=== PATIENT | female | born 1970 | race Caucasian/White ===

== ENCOUNTER → 2017-05-19 14:16 | Outpatient (CLI) | payer BC, SELFPAY ==
--- NOTE | 2017-05-19 14:23 | XR_ITS ---
XR hip RT 2-3V w/pelvis HISTORY: ITS.REASON: RT HIP PAIN ORDERING PHYSICIAN: Gino Pickett MD PATIENT AGE: 47 years COMPARISON: 10/10/2008 FINDINGS: There is an old ununited avulsion fracture of the greater trochanter with minimal hypertrophic change along the superior aspect of the greater trochanter and minimal distraction of the fragments x 4 mm. No acute fracture or dislocation is evident. No significant arthritic change. Pelvic phleboliths are noted. IMPRESSION: Old ununited greater trochanter fracture, no acute finding
== END ==
PROVIDERS: PCP Family Medicine; Visit Provider Family Medicine
DX: M25.551 Pain in right hip (principal)
CPT/HCPCS: 73502

== ENCOUNTER → 2017-12-01 14:17 | Outpatient (CLI) | payer BC, SELFPAY ==
[2017-12-01 17:05] LABS: Free T4 (Free Thyroxine) 1.49 ng/dl (0.76-1.46); Thyroid Stimulating Hormone 0.43 uIU/ml (0.358-3.740)
== END ==
PROVIDERS: PCP Family Medicine; Referring Provider Internal Medicine; Visit Provider Internal Medicine
DX: E89.0 Postprocedural hypothyroidism (principal)
CPT/HCPCS: 36415; 84439; 84443

== ENCOUNTER → 2018-04-25 10:15 | Outpatient (CLI) | payer BC, SELFPAY ==
--- NOTE | 2018-04-25 10:19 | MM_ITS ---
MM Dig screening mamm BI w/CAD CAD Screening COMPARISON: Digital mammograms with CAD 06/29/2016 and 06/10/2015 INDICATION: There is a history of breast cancer in patient's maternal grandmother diagnosed after menopause. There has been a previous biopsy left breast for benign disease. TECHNIQUE: Standard CC and MLO images were obtained. R2 CAD reviewed. FINDINGS: There is a markedly and diffusely dense parenchymal pattern bilaterally lessening the sensitivity of mammography. There are scattered benign-appearing microcalcifications in each breast more numerous left than right. There is a biopsy clip left breast. There is no suspicious lesion and no suspicious microcalcifications. IMPRESSION: Markedly dense parenchymal pattern with no suspicious lesion seen BI-RADS Category: 2 Benign Finding(s) RECOMMENDED FOLLOW-UP: 1YR - 1 YEAR FOLLOW-UP (A letter has been sent to the patient regarding results of the study.)
== END ==
PROVIDERS: PCP Family Medicine; Visit Provider Obstetrics & Gynecology
DX: Z12.31 Encounter for screening mammogram for malignant neoplasm of breast (principal)
CPT/HCPCS: 77067

== ENCOUNTER → 2018-05-04 14:03 | Outpatient (CLI) | payer BC, SELFPAY ==
--- NOTE | 2018-05-04 14:09 | CT_ITS ---
CT abdomen pelvis wo con CLINICAL INDICATION: Left upper quadrant pain, periumbilical pain ITS.REASON: ABDOMINAL PAIN ORDERING PHYSICIAN: Gino Pickett MD PATIENT AGE: 48 years COMPARISON: None TECHNIQUE: Axial images obtained with sagittal and coronal reformats. All CT scans at the facility use one or more dose reduction, viz: automated exposure control, ma/kV adjustment per patient size (including targeted exams where dose is matched to indication, i.e. head), or iterative reconstruction technique. PROCEDURE: Oral Contrast: None IV Contrast: None . FINDINGS: Lower thorax: No acute finding Prior cholecystectomy. The liver, spleen, adrenal glands, pancreas, and kidneys have an unremarkable unenhanced CT appearance. There is a moderate amount of retained colonic feces. Suture line is present in the mid pelvic region. No intestinal obstruction or free air. No evidence of appendicitis or diverticulitis. There are multiple unopacified bowel loops present within the abdomen/pelvis which could obscure or mimic pathology. If symptoms persists, consider repeating exam with IV and oral contrast administration. No acute bony findings. Heterotopic bone formation is noted along the superior aspect of the right greater trochanter IMPRESSION: 1. Constipation. 2. No acute abdominal or pelvic findings on this unenhanced exam
== END ==
PROVIDERS: PCP Family Medicine; Visit Provider Family Medicine
DX: R10.9 Unspecified abdominal pain (principal)
CPT/HCPCS: 74176

== ENCOUNTER → 2018-12-26 11:43 | Outpatient (CLI) | payer BC, SELFPAY ==
[2018-12-26 14:13] LABS: Alanine Aminotransferase 11 U/L (12-78); Albumin Level 4.1 gm/dL (3.4-5.0); Albumin/Globulin Ratio 1.2 (1.1-1.8); Alkaline Phosphatase 51 U/L (46-116); Anion Gap 12.4 mEq/L (5-15); Aspartate Amino Transferase 8 U/L (15-37); Bilirubin,Total 0.3 mg/dL (0.2-1.0); Blood Urea Nitrogen 10 mg/dL (7-18); Calcium 8.9 mg/dL (8.5-10.1); Carbon Dioxide 29 mmol/L (21.0-32.0); Chloride 103 mmol/L (98-107); Chol/HDL Ratio 2.5 (1-3.5); Cholesterol 183 mg/dL (140-200); Creatinine,Serum 0.55 mg/dL (0.55-1.02); Estimated Glomerular Filt Rate 117 ml/min (>60); GFR (African American) 142 ML/MIN (>60); Globulin 3.5 gm/dl (1.3-3.2); Glucose 80 mg/dL (74-106); HDL Cholesterol 72 mg/dL (29-89); LDL Cholesterol 92 mg/dL (0-130); Potassium 4.4 mmoL/L (3.5-5.1); Sodium 140 mmol/L (136-145); T4 (Thyroxine) 12.8 ug/dl (4.7-13.3); Thyroid Stimulating Hormone 1.94 uIU/ml (0.358-3.740); Total Protein,Serum 7.6 gm/dL (6.4-8.2); Triglycerides 96 mg/dL (30-200); VLDL Cholesterol 19 mg/dL (0-40)
== END ==
PROVIDERS: Visit Provider Family Medicine
DX: G54.6 Phantom limb syndrome with pain (principal); E03.9 Hypothyroidism, unspecified
CPT/HCPCS: 36415; 80053; 80061; 84436; 84443

== ENCOUNTER 2019-08-18 13:27 | Emergency (ER) | payer BC, SELFPAY ==
[2019-08-18 13:29] VITALS: BP 101/63; PULSE 88; RESP 16; TEMP 37.4; O2SAT 99; BMI 21.9
--- NOTE | 2019-08-18 14:01 | XR_ITS ---
PROCEDURE: XR TIBIA FIBULA RT 2V CLINICAL INDICATION: injury Posttraumatic pain with laceration COMPARISON: No exams were available for comparison FINDINGS: No fracture, dislocation, lytic change, or blastic change evident. No significant degenerative change. There are faint small opacities in the mid aspect of the pretibial region consistent with small foreign bodies. IMPRESSION: Small foreign bodies in the pretibial region at the mid tibial level otherwise negative Dictated by: Bony Hendricks MD 08/18/2019 15:23 Electronically signed by Bony Hendricks MD in [place] 08/18/2019 15:23
--- NOTE | 2019-08-18 15:06 | HMH.EDUTC ---
[facility] Clinical Impression: Leg laceration Qualifiers: Encounter type: initial encounter Laterality: right Qualified Code(s): S81.811A - Laceration without foreign body, right lower leg, initial encounter Disposition: Home, Self-Care Condition on Discharge: Good Instructions: How to Care for a Laceration Prior to Repair, Laceration Repair, DI for Laceration Repair -- Simple Additional Instructions: You have required stitches today. Please read the following instructions so you know how to care for them: 1. Keep wound area dry for the first 24 hours. 2 May clean gently with mild soap and water, after 48 hours to prevent crusting over suture knots. 3. You may shower if your provider gives permission but do not take a bath until the skin is healed.. 4. Never leave a wet dressing or Band-Aid on your stitches as this allows bacteria to reach the area and may cause infection. Band-aids can cause the wound to sweat and not recommended to wear for long periods of time Watch for signs of infection: Increasing redness, tenderness or warmth around the suture site Unusual swelling around the site Appearance of pus around each suture or any red streaks Fever If you develop any of the above signs or symptoms of infection, Follow up with Family Physician immediately 5. Suture removal in __7-10__days 6. Return to [facility] or follow up with family doctor for removal. This can be done by any medical provider during regular hours on Monday through Monday, by appointment. Prescriptions: Amoxicillin/Potassium Clav [Augmentin 500mg tab] 1 tab PO BID 7 Days #14 tab Transmission Status: Received by [id number] Referrals: Gino Pickett MD [Primary Care Provider] - As needed Time of Disposition: 15:08 Medical Decision Making - Gaetano Inquiry Pt receiving controlled substance: No Gaetano was queried for this patient: No Vital Signs: 08/18/19 13:29 08/18/19 15:14 Temperature 99.4 F 99.4 F Temperature Source Oral Oral Pulse Rate 88 Pulse Rate [Radial] 88 Respiratory Rate 16 16 Blood Pressure 101/63 L Blood Pressure [Right Arm] 101/63 L Blood Pressure Mean [Right Arm] 75 Blood Pressure Source Automatic Cuff Blood Pressure Source [Right Arm] Automatic Cuff Blood Pressure Position Sitting Blood Pressure Position [Right Arm] Sitting 02 Sat by Pulse Oximetry 99 Oxygen Delivery Method Room Air Room Air - Radiology Data #1 Image(s): Tib/Fib Image Reviewed: Yes I reviewed the patient's radiology image Preliminary Findings: No Fracture Seen small debris like particles noted in area of laceration Medical Decision Narrative: wound area was flushed well with saline and several small pieces of debris was removed from wound area. Last tetanus 2 yrs ago [facility] [place]PI - General Stated complaint: AO 08/17 @ 1120 right leg injury, laceration Time Seen by Provider: 08/18/19 14:15 Mode of Arrival: Ambulatory Source of Information: Patient Limitations: No Limitations Description of Symptoms (Recalled from Triage Doc. by RN): rock flew out of [employer] and hit her right merlos HEENT Symptoms (Recalled from RN notes): No Resp Symptoms (Recalled from RN notes): No Skin Symptoms (Recalled from RN notes): Yes MS Symptoms (Recalled from RN notes): No Functional Status (Recalled from RN notes): wnl - History of Present Illness Provider Complaint: Patient states that she was pushing [employer] earlier at home when she accidently ran over a rock and it flew from the mower and hit her in her right merlos area causing laceration and bruising State that she immediately applied pressure and tried to clean it and put something over it and it has continued to have bleeding on and off and her husban brought her in to get it checked - Related Data Home Medications Medication Instructions Recorded Confirmed levothyroxine 150 mcg tablet 150 mcg PO DAILY tab 06/12/17 10/08/18 trazodone 50 mg tablet 50 mg PO QHS PRN
[2019-08-18 15:14] VITALS: BP 101/63; PULSE 88; RESP 16; TEMP 37.4; O2SAT 99
== END 2019-08-18 15:15 | disposition home or self-care (01) ==
PROVIDERS: Emergency Provider Nurse Practitioner; PCP Family Medicine
DX: S81.811A Laceration without foreign body, right lower leg, initial encounter (principal); W22.8XXA Striking against or struck by other objects, initial encounter; Y92.017 Garden or yard in single-family (private) house as the place of occurrence of the external cause; F33.1 Major depressive disorder, recurrent, moderate; E03.9 Hypothyroidism, unspecified
CPT/HCPCS: 12001; 73590; 99202

== ENCOUNTER 2020-02-02 16:11 | Emergency (ER) | payer BC, SELFPAY ==
[2020-02-02 16:11] VITALS: BP 149/84; PULSE 97; RESP 14; TEMP 37; O2SAT 97; BMI 21.9
--- NOTE | 2020-02-02 16:13 | ECG_ITS ---
APPROVED REPORT Exam: Resting ECG HR:110 bpm ECG Measurements Heart Rate 110 AXES NE 150 P 28 QRSd 78 QRS 43 QT 338 T -20 QTc 457 Conclusion Sinus tachycardia Low voltage QRS Cannot rule out Anterior infarct, age undetermined Abnormal ECG Electronically signed by : Rashaun Shell, 02/03/2020 21:08:15
--- NOTE | 2020-02-02 16:15 | HMH.EDGENADL ---
ED Disposition Clinical Impression: Atypical chest pain Disposition: Home, Self-Care Condition on Discharge: Good Instructions: DI for Atypical Chest Pain Additional Instructions: Additional instructions for CHEST PAIN: See your physician as soon as possible for further evaluation. Return immediately if worsening chest pain, vomiting, shortness of breath, fever, coughing of blood. Referrals: Gino Pickett MD [Primary Care Provider] - - Critical Care Critical Care Time: No Attestation: On , the high probability of a clinically significant, sudden or life threatening deterioration of the following system(s) required my full and direct attention, intervention and personal management. The time I documented below is in addition to time spent performing reported procedures but includes the following listed in this critical care notation. Medical Decision Making - Gaetano Inquiry Pt receiving controlled substance: No Vital Signs: 02/02/20 16:11 02/02/20 17:04 02/02/20 17:37 Temperature 98.6 F Temperature Source Oral Pulse Rate [Left Radial] 97 H 74 71 Respiratory Rate 14 Blood Pressure [Right Arm] 149/84 H 111/82 122/77 Blood Pressure Mean [Right Arm] 105 91 92 Blood Pressure Source [Right Arm] Automatic Cuff Automatic Cuff Automatic Cuff Blood Pressure Position [Right Arm] Sitting Sitting Sitting 02 Sat by Pulse Oximetry 97 73 L 97 Oxygen Delivery Method Room Air Room Air Room Air 02/02/20 18:15 Temperature Temperature Source Pulse Rate [Left Radial] 74 Respiratory Rate Blood Pressure [Right Arm] 113/82 Blood Pressure Mean [Right Arm] 92 Blood Pressure Source [Right Arm] Automatic Cuff Blood Pressure Position [Right Arm] Sitting 02 Sat by Pulse Oximetry 97 Oxygen Delivery Method Room Air - Lab Data Lab Results 02/02/20 16:10: WBC 7.1, RBC 4.20, Hgb 13.6, Hct 41.6, MCV 99.2 H, MCH 32.4 H, MCHC 32.7, RDW 13.2, Plt Count 406, MPV 7.4, Neut % (Auto) 50.4, Lymph % (Auto) 40.7, Stephens % (Auto) 4.2, Eos % (Auto) 3.7, Baso % (Auto) 0.9, Neut # (Auto) 3.6, Lymph # (Auto) 2.9, Stephens # (Auto) 0.3, Eos # (Auto) 0.3, Baso # (Auto) 0.1 02/02/20 16:10: Sodium 139, Potassium 4.0, Chloride 106, Carbon Dioxide 24, Anion Gap 13.0, BUN 11, Creatinine 0.60, Estimated Creat Clear 111, Estimated GFR 105, Est GFR ( Amer) 128, Glucose 123 H, Calcium 9.2, Troponin I < 0.01 02/02/20 16:10: D-Dimer 0.54 Result diagrams: 02/02/20 16:10 02/02/20 16:10 Orders (Tests/Meds): ORDERS Category Date Time Status Troponin I Q3H Lab 02/02/20 19:21 Received Troponin I Q3H Lab 02/02/20 22:15 Ordered - Radiology Data #1 Image(s): Chest Image Reviewed: Yes I reviewed the patient's radiology image, Yes I have reviewed radiologist's interpretation Preliminary Findings: Normal/NAD PROCEDURE: XR CHEST 2V CLINICAL HISTORY: cp COMPARISON: No exams were available for comparison FINDINGS: The cardiomediastinal silhouette and pulmonary vascularity are within normal limits. The lungs are clear without infiltrates, suspicious nodules, or pleural effusions. There are small calcified hilar nodes bilaterally. Monitor lines overlying the chest. No acute bony abnormalities. IMPRESSION: No acute findings. Dictated by: Dr. Joesph Galvez MD 02/02/2020 18:29 Dr. Joesph Galvez MD in [place] 02/02/2020 18:29 - ECG Data Tracing #1 EKG interpreted by Chico Babcock MD: Rhythm: sinus tachycardia Rate: 110 Gordo: normal Ectopy: none Conduction: normal ST Segment Changes: Nonspecific T Wave Changes: Nonspecific Q Waves: none Poor R wave progression No prior EKGs available for comparison. - BRIAN Score for Non-Stemi Age of Patient: 50-59 years old Heart Rate: 90-109 bpm Systolic Blood Pressure: 140-159 mmHg Serum Creatinine: 0.40-0.79 mg/dl CHF Killip Class: I-No CHF Other Risk Factors: None Non-Stemi Risk Score: 84 Medical Decision Narrative: Heart Pathway Score is:
[2020-02-02 16:25] LABS: Basophils # 0.1 K/mm3 (0-0.2); Basophils % 0.9 % (0.1-2.0); Eosinophils # 0.3 K/mm3 (0.0-0.4); Eosinophils % 3.7 % (0.1-12.0); Hematocrit 41.6 % (37.0-47.0); Hemoglobin 13.6 g/dL (12.2-16.2); Lymphocytes # 2.9 K/mm3 (0.7-4.5); Lymphocytes % 40.7 % (10-50); Mean Corpuscular HGB Conc 32.7 g/dL (31.8-35.4); Mean Corpuscular Hemoglobin 32.4 pg (27.0-31.2); Mean Corpuscular Volume 99.2 fl (81-99); Mean Platelet Volume 7.4 fl (7.4-10.4); Monocytes # 0.3 K/mm3 (0.1-1.0); Monocytes % 4.2 % (1.7-9.3); Neutrophils # 3.6 K/mm3 (1.8-7.8); Neutrophils % 50.4 % (37.0-80.0); Platelet Count 406 K/mm3 (142-424); Red Cell Distribution Width 13.2 % (11.5-17.5); White Blood Count 7.1 K/mm3 (4.8-10.8)
[2020-02-02 16:26] LABS: Chloride 106 mmol/L (98-107); Sodium 139 mmol/L (136-145)
[2020-02-02 16:29] LABS: Blood Urea Nitrogen 11 mg/dl (7-17); Carbon Dioxide 24 mmol/L (22.0-30.0); Creatinine Clearance Estimated 111 mL/min (50-200); Estimated Glomerular Filt Rate 105 ml/min (>60); GFR (African American) 128 ML/MIN (>60)
[2020-02-02 16:30] LABS: Calcium 9.2 mg/dl (8.4-10.2); Glucose 123 mg/dl (74-100)
--- NOTE | 2020-02-02 16:32 | PC.NURSE ---
Pt returned from rad.
[2020-02-02 16:43] LABS: Troponin I < 0.01 ng/ml (0.00-0.034)
[2020-02-02 17:04] VITALS: BP 111/82; PULSE 74; O2SAT 73
[2020-02-02 17:15] LABS: D-Dimer 0.54 ug/mL (0.15-8.0)
[2020-02-02 17:37] VITALS: BP 122/77; PULSE 71; O2SAT 97
[2020-02-02 18:15] VITALS: BP 113/82; PULSE 74; O2SAT 97
[2020-02-02 19:58] LABS: Troponin I < 0.01 ng/ml (0.00-0.034)
[2020-02-02 20:18] VITALS: BP 113/81; PULSE 72; RESP 14; TEMP 37; O2SAT 98
== END 2020-02-02 20:20 | disposition home or self-care (01) ==
PROVIDERS: Emergency Provider Emergency Medicine; PCP Family Medicine
DX: R07.89 Other chest pain (principal); E03.9 Hypothyroidism, unspecified; F33.1 Major depressive disorder, recurrent, moderate; Z88.2 Allergy status to sulfonamides; Z79.899 Other long term (current) drug therapy
CPT/HCPCS: 36415; 71046; 80048; 84484; 85025; 85378; 93005; 99283

== ENCOUNTER → 2020-02-10 06:53 | Outpatient (CLI) | payer BC, SELFPAY ==
--- NOTE | 2020-02-10 | CA_ITS ---
APPROVED REPORT Exam: Pharmacologic Technologist: Shena Cai, Ht: 5 ft 7 in Wt: 140 lbs BSA: 1.74 m2 HR: 73 bpm BP: 125/81 mmHg Rhythm: Sinus Medical History Medications: Trazadone,,,,, Gabapentin,,,,, Lexapro,,,,, Synthroid,,,,, control,,,,, Nortriptylin,,,,, Stress Test Details Test: LEXISCAN HR Resting HR: 70 bpm Max Heart Rate (APMHR): 168 bpm Max HR Achieved: 105 bpm Target HR (85% APMHR): 142 bpm % of APMHR: 62 Recovery HR: 81 bpm BP Resting BP: 125/81 mmHg Max BP: 126/74 mmHg Recovery BP: 126.0/74.0 mmHg ECG Resting ECG: Sinus Clinical Exercise duration: 04:00 min Highest Stage Achieved: Stress ECG Conclusion Lexiscan portion completed. Pt c/o shortness of breath during peak infusion. Symptoms: No chest pain, (+) SOB during peak infusion, resolved in recovery. Arrhythmias/Ectopy: No ectopy noted. ST-T changes: Less than 1.5mm ST depression. Images to follow Electronically signed by : Amish Paulson, 02/11/2020 08:57:23
--- NOTE | 2020-02-10 06:59 | NM_ITS ---
APPROVED REPORT Exam: Nuclear Stress Test Indication: Chest pain, Family history Patient Location: Outpatient Stress Tech: Tamara Melissa NM Tech:Shantal Hope ARRT, RT (R)(N) Ht: 5 ft 7 in Wt: 140 lbs Bra Size: 34C HR: 73 bpm BP: 125/81 mmHg BSA: 1.74 m2 BMI: 21.9 History: Chest pain, Family history Procedure: Patient received a 0.4 mg of intravenous Lexiscan, resting heart rate 73 bpm, resting blood pressure 125/81 mmHg, with Lexiscan maximum heart rate achived was 99 bpm which is 85 % of the maximum predicted heart rate and blood pressure was 109/63 mmHg. With Lexiscan, patient denied any complaint of chest pain. Cardiac Stress and Resting SPECT Images: Cardiac Stress and Resting SPECT images were obtained using technetium 99m Myoview 32.6 mCi stress and 10.82 mCi at rest. Ejection fraction is lower normal at 55% with no obvious wall motion abnormalities. There is a small area of decreased attenuation within the anterior wall on both the stress and delayed images and may be due to breast attenuation artifact. No reversible defects are evident. Conclusion: Ejection fraction is lower normal at 55% with no obvious wall motion abnormalities. There is a small area of decreased attenuation within the anterior wall on both the stress and delayed images and may be due to breast attenuation artifact. No reversible defects are evident. Unremarkable exam. No ischemic changes Electronically signed by : Bony Hendricks MD 02/12/2020 17:04:10
--- NOTE | 2020-02-10 08:49 | HMH.ITSHM ---
Current Home Medications as stated by this patient Beverly Hernandez or training representative. []SYNTHROID CONTROL TRAZADONE GABAPENTIN LORATRIPTOL
== END ==
PROVIDERS: PCP Family Medicine; Visit Provider Family Medicine
DX: R07.2 Precordial pain (principal)
CPT/HCPCS: 78452; 93017; A9502; J2785

== ENCOUNTER 2020-04-14 00:55 | Inpatient (IN) | payer BC, SELFPAY ==
[2020-04-14] VITALS (14 sets, daily range): BP systolic 90–140; BP diastolic 51–86; PULSE 74–100; RESP 15–18; TEMP 36.4–37.1; O2SAT 96–100; BMI 21.9; BMI 21.1
--- NOTE | 2020-04-14 01:18 | XR_ITS ---
PROCEDURE: XR HIP LT 2-3V W/PELVIS CLINICAL INDICATION: fall with hip pain Posttraumatic pain COMPARISON: CR HIPCMRT XR hip RT 2-3V w/pelvis from 05/19/2017 FINDINGS: There is a transcervical left femoral neck fracture with mild impaction the fracture fragments. There is approximately 2 cm foreshortening and mild lateral displacement of the distal fracture fragment. There is an old right greater trochanter fracture. There is an old distal femur fracture with remodeling of the bone with a lateral bone plate at the mid and distal femur transfixed by multiple cortical screws. IMPRESSION: 1. Acute fracture of the transcervical region of the left femur with foreshortening and mild lateral displacement of the distal fracture fragment. 2. Prior ORIF old distal femur fracture Dictated by: Bony Hendricks MD 04/14/2020 06:32 Bony Hendricks MD in [place] 04/14/2020 06:32
--- NOTE | 2020-04-14 01:18 | XR_ITS ---
PROCEDURE: XR KNEE LT 3V CLINICAL INDICATION: fall with knee pain COMPARISON: CR KNEE3L KNEE-3 VIEWS-LT from 01/17/2013 CR XR HIP LT 2-3V W/PELVIS from 04/14/2020 FINDINGS: There is an old fracture of the distal femur and proximal tibia with a lateral femur bone plate present. 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 Osteoarthritic changes are present at the knee. Soft tissue calcification noted at the distal thigh. IMPRESSION: Old distal femur and proximal tibial fracture with lateral bone plate of the femur. No definite acute fracture apparent Dictated by: Bony Hendricks MD 04/14/2020 06:28 Bony Hendricks MD in [place] 04/14/2020 06:28
--- NOTE | 2020-04-14 01:26 | PC.NURSE ---
pt to RAD
--- NOTE | 2020-04-14 01:27 | HMH.EDFALL ---
ED Disposition Clinical Impression: Hip fracture Qualifiers: Encounter type: initial encounter Fracture type: closed Laterality: left Qualified Code(s): S72.002A - Fracture of unspecified part of neck of left femur, initial encounter for closed fracture Osteopenia Qualifiers: Osteopenia location: femoral neck Laterality: left Qualified Code(s): M85.852 - Other specified disorders of bone density and structure, left thigh Disposition: Admitted As Inpatient Condition on Discharge: Good - Critical Care Critical Care Time: No Attestation: On 04/14/20, the high probability of a clinically significant, sudden or life threatening deterioration of the following system(s) required my full and direct attention, intervention and personal management. The time I documented below is in addition to time spent performing reported procedures but includes the following listed in this critical care notation. Medical Decision Making - Medical Records Medical records reviewed: Yes: I reviewed the patient's medical records. - Gaetano Inquiry Pt receiving controlled substance: No Vital Signs: 04/14/20 00:57 04/14/20 02:31 04/14/20 03:00 Temperature 98.7 F Temperature Source Oral Pulse Rate [Left Radial] 74 82 87 Respiratory Rate 16 16 16 Blood Pressure [Right Arm] 90/53 L 96/51 L 98/56 L Blood Pressure Mean [Right Arm] 65 66 70 Blood Pressure Source [Right Arm] Automatic Cuff Automatic Cuff Automatic Cuff Blood Pressure Position [Right Arm] Sitting Sitting Sitting 02 Sat by Pulse Oximetry 100 99 100 Oxygen Delivery Method Room Air Room Air Room Air 04/14/20 03:30 Temperature Temperature Source Pulse Rate [Left Radial] 83 Respiratory Rate 15 Blood Pressure [Right Arm] 107/72 L Blood Pressure Mean [Right Arm] 83 Blood Pressure Source [Right Arm] Automatic Cuff Blood Pressure Position [Right Arm] Sitting 02 Sat by Pulse Oximetry 97 Oxygen Delivery Method Room Air - Lab Data Lab results reviewed: Yes: I reviewed the patient's lab results. Result diagrams: 04/14/20 02:32 04/14/20 02:32 Orders (Tests/Meds): ED MEDICATIONS Generic Name Dose Route Start Last Admin Trade Name Freq PRN Reason Stop Dose Admin Sodium Chloride 1,000 mls @ 999 mls/hr 04/14/20 02:45 04/14/20 02:45 Sod Chlor 0.9% 1000ml Bag IV 04/14/20 03:45 999 mls/hr .Q1H1M MI Administration Discontinued Medications Generic Name Dose Route Start Last Admin Trade Name Freq PRN Reason Stop Dose Admin Morphine Sulfate 4 mg 04/14/20 02:41 04/14/20 02:45 Morphine 4mg/Ml Syringe IV 04/14/20 02:42 4 mg ONCE ONE Administration Ondansetron HCl 4 mg 04/14/20 02:41 04/14/20 02:45 Ondansetron 4mg/2ml Vial IV 04/14/20 02:42 4 mg ONCE ONE Administration ORDERS Category Date Time Status CT hip LT wo con Stat Cat Scan 04/14/20 01:40 Taken Knee XR left 3 views [XR knee LT 3V] Stat Exams 04/14/20 01:18 Taken XR hip LT 2-3V w/pelvis Stat Exams 04/14/20 01:18 Taken Troponin I Q3H Lab 04/14/20 05:00 Ordered Troponin I Q3H Lab 04/14/20 08:00 Ordered - Radiology Data #1 Image(s): Hip, Knee Image Reviewed: Yes I reviewed the patient's radiology image w/the ED provider Preliminary Findings: Abnormal (hip fx and chronic changes lt lower leg ) - CT Data CT Scan: Other (lt hip) Time Received: 03:[address] Reviewed: Yes: I have viewed the radiologist's interpretation Preliminary Findings: Abnormal (hip fx) - Physician Consults Physician Consulted: david Reason -: Admission Fall HPI - General Chief Complaint: Fall Stated Complaint: AO 04/14/20 00:25 injury left leg Time Seen by Provider: 04/14/20 01:05 Mode of Arrival: Ambulatory Source of Information: Patient, Spouse, Medical Record Limitations: No Limitations Description of Symptoms (Recalled from ER Triage Doc. by RN): pt stated she tripped and fell on her bottom. pt complains of left hip pain and left knee pain. pt deneis any abd. or chest pain
--- NOTE | 2020-04-14 01:40 | CT_ITS ---
PROCEDURE: CT HIP LT WO CON CLINICAL HISTORY: fall left hip pain COMPARISON: CT ABDPELWO CT abdomen pelvis wo con from 05/04/2018 TECHNIQUE: Axial images obtained with sagittal and coronal reformats. All CT scans at the facility use one or more dose reduction, viz: automated exposure control, ma/kV adjustment per patient size (including targeted exams where dose is matched to indication, i.e. head), or iterative reconstruction technique. FINDINGS: Acute fracture involves left femoral neck transcervical region. The distal fracture fragment is displaced proximally with foreshortening of approximately 1.3 cm and with mild lateral displacement of the distal fracture fragment. No evidence of dislocation. There is a lateral bone plate within the mid femur. Incidental note made colonic diverticulosis and a few small nodes in the left inguinal region. IMPRESSION: Acute fracture of the transcervical portion of the left femoral neck with foreshortening and mild lateral displacement of the distal fracture fragment Dictated by: Bony Hendricks MD 04/14/2020 07:02 Bony Hendricks MD in [place] 04/14/2020 07:02
--- NOTE | 2020-04-14 01:47 | PC.NURSE ---
spoke with Dr. Culver for admission
--- NOTE | 2020-04-14 02:26 | PC.NURSE ---
pt back from RAD
[2020-04-14 02:56] LABS: Chloride 101 mmol/L (98-107); Potassium 4.2 mmoL/L (3.5-5.1); Sodium 135 mmol/L (136-145)
[2020-04-14 02:57] LABS: Basophils % 0.3 % (0.1-2.0); Eosinophils # 0.2 K/mm3 (0.0-0.4); Eosinophils % 1.6 % (0.1-12.0); Hematocrit 40.8 % (37.0-47.0); Hemoglobin 13.5 g/dL (12.2-16.2); Lymphocytes # 1.9 K/mm3 (0.7-4.5); Lymphocytes % 14.2 % (10-50); Mean Corpuscular HGB Conc 33.1 g/dL (31.8-35.4); Mean Corpuscular Hemoglobin 32.7 pg (27.0-31.2); Mean Corpuscular Volume 98.8 fl (81-99); Mean Platelet Volume 7.2 fl (7.4-10.4); Monocytes # 0.5 K/mm3 (0.1-1.0); Monocytes % 3.7 % (1.7-9.3); Neutrophils # 10.7 K/mm3 (1.8-7.8); Neutrophils % 80.2 % (37.0-80.0); Platelet Count 423 K/mm3 (142-424); Red Blood Count 4.13 M/mm3 (4.20-5.40); Red Cell Distribution Width 13.8 % (11.5-17.5); White Blood Count 13.3 K/mm3 (4.8-10.8)
[2020-04-14 02:58] LABS: Alanine Aminotransferase 17 U/L (12-78); Aspartate Amino Transferase 29 U/L (14-36); Blood Urea Nitrogen 17 mg/dl (7-17); Creatinine Clearance Estimated 110 mL/min (50-200); Estimated Glomerular Filt Rate 105 ml/min (>60); GFR (African American) 127 ML/MIN (>60)
[2020-04-14 02:59] LABS: Albumin Level 4.5 g/dl (3.5-5.0); Albumin/Globulin Ratio 1.4 (1.1-1.8); Alkaline Phosphatase 60 U/L (38-126); Anion Gap 11.2 mEq/L (5-15); Bilirubin,Total 0.4 mg/dl (0.2-1.3); Calcium 9.3 mg/dl (8.4-10.2); Carbon Dioxide 27 mmol/L (22.0-30.0); Globulin 3.3 g/dL (1.3-3.2); Glucose 124 mg/dl (74-100); Total Protein,Serum 7.8 g/dl (6.3-8.2)
[2020-04-14 03:18] LABS: Troponin I < 0.01 ng/ml (0.00-0.034)
[2020-04-14 03:29] LABS: Coronavirus 19 IgG Antibody Positive (Negative); Coronavirus 19 IgM Antibody Negative (Negative)
[2020-04-14 03:32] LABS: Microscopic, Urine URINE MICROSCOPIC (MICROSCOPIC)
[2020-04-14 03:33] LABS: Appearance,Urine CLEAR (Clear); Bilirubin,Urine Negative (Negative); Blood, Urine 2+ (Negative); Color,Urine YELLOW (Yellow); Glucose,Urine (UA) Negative (Negative); Ketones,Urine TRACE (Negative); Leukocyte Esterase,Urine Negative (Negative); Nitrate,Urine Negative (Negative); Protein,Urine 1+ (Negative); Specific Gravity, Urine >= 1.030 (1.005-1.030); Urobilinogen,Urine 0.2 EU/dl (0.2)
[2020-04-14 03:55] LABS: Bacteria,Urine 1+ /lpf; Mucus,Urine 1+ /lpf
--- NOTE | 2020-04-14 04:26 | PC.NURSE ---
PT ARRIVED VIA STRETCHER FROM ED W/STAFF AT [id number]
--- NOTE | 2020-04-14 07:34 | HMH.PHAVTE ---
[facility] VTE Monitoring - Patient Demographics Admission date: 04/14/20 Report Date: 04/14/20 Time: 07:34 Allergies/Adverse Reactions: Patient Allergies clindamycin Allergy (Mild, Verified 04/14/20 03:37) rash SULFA (sulfonamide) Allergy (Unknown, Uncoded 08/29/19 11:11) Height: 1.7 m Weight: 61.235 kg Patient Problems: Current Active Problems Hip fracture (Acute) Osteopenia (Acute) - VTE Risk Labs: VTE Related Lab Results Hgb 13.5 g/dL (12.2-16.2) 04/14/20 02:32 Hct 40.8 % (37.0-47.0) 04/14/20 02:32 Plt Count 423 K/mm3 (142-424) 04/14/20 02:32 BUN 17 mg/dl (7-17) 04/14/20 02:32 Creatinine 0.60 mg/dl (0.52-1.04) 04/14/20 02:32 Estimated Creat Clear 110 mL/min (50-200) 04/14/20 02:32 Was VTE Risk Assessment Performed: Yes VTE Score: 3 VTE Risk Level: Low Risk Clinical Trial Participant: No - Prophylaxis VTE Prophylaxis Ordered?: Yes Types of VTE Prophylaxis: TEDS Knee High
--- NOTE | 2020-04-14 07:58 | HMH.PHAINT ---
home medication list confirmed using list from pharmacy and pt interview
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
[2020-04-14 17:18] LABS: Activated Partial Thrombo Time 28.2 seconds (23.6-34.0); INR 0.92 (0.9-1.1); Prothrombin Time 10.3 seconds (9.4-11.8)
--- NOTE | 2020-04-14 23:03 | PC.NURSE ---
PATIENT A&O X4, LUNGS ARE CLEAR, PULSES EQUAL. THERE HAVE BEEN NO NEW CONCERNS DURING THIS RN SHIFT;
[2020-04-15] VITALS (22 sets, daily range): BP systolic 89–128; BP diastolic 56–78; PULSE 81–108; RESP 16–20; TEMP 36.2–43; O2SAT 92–99; BMI 21.2
--- NOTE | 2020-04-15 06:20 | PC.NURSE ---
pt has no acute changes. pt has reported pain and prn med given per may. martínez draining yellow urine. iv patent and infusing per order. vss. call light in reach. will continue to monitor
[2020-04-15 07:47] LABS: Basophils % 0.4 % (0.1-2.0); Eosinophils # 0.4 K/mm3 (0.0-0.4); Eosinophils % 4.6 % (0.1-12.0); Hematocrit 35.8 % (37.0-47.0); Hemoglobin 11.1 g/dL (12.2-16.2); Lymphocytes # 1.9 K/mm3 (0.7-4.5); Lymphocytes % 23.9 % (10-50); Mean Corpuscular HGB Conc 30.9 g/dL (31.8-35.4); Mean Corpuscular Hemoglobin 31.4 pg (27.0-31.2); Mean Corpuscular Volume 101.6 fl (81-99); Mean Platelet Volume 7.3 fl (7.4-10.4); Monocytes # 0.4 K/mm3 (0.1-1.0); Monocytes % 4.4 % (1.7-9.3); Neutrophils # 5.4 K/mm3 (1.8-7.8); Neutrophils % 66.8 % (37.0-80.0); Platelet Count 282 K/mm3 (142-424); Red Blood Count 3.53 M/mm3 (4.20-5.40)
[2020-04-15 08:01] LABS: Anion Gap 9.1 mEq/L (5-15); Blood Urea Nitrogen 6 mg/dl (7-17); Calcium 8.5 mg/dl (8.4-10.2); Carbon Dioxide 28 mmol/L (22.0-30.0); Chloride 103 mmol/L (98-107); Creatinine Clearance Estimated 127 mL/min (50-200); Estimated Glomerular Filt Rate 130 ml/min (>60); GFR (African American) 157 ML/MIN (>60); Glucose 115 mg/dl (74-100); Potassium 4.1 mmoL/L (3.5-5.1); Sodium 136 mmol/L (136-145)
[2020-04-15 08:22] LABS: 25-OH Vitamin D, Total 18.4 ng/mL (30-100)
--- NOTE | 2020-04-15 08:52 | HMH.ACPN2 ---
<Berkley Willett - Last Filed: 04/15/20 08:52> Internal Medicine - PN: Subj *Date: 04/15/20 *Time: 08:52 Interval history: Patient is to have surgery today. She was able to sleep a little during the night. The morphine and Percocet do help her pain. She was able to eat yesterday. She denies stomach problems. She denies chest pain and shortness of breath. Exam Vital signs and Labs for Last 24 Hours: Temp Pulse Resp BP Pulse Ox 98.5 F 85 18 118/66 93 L 04/15/20 04:00 04/15/20 04:00 04/15/20 04:00 04/15/20 04:00 04/15/20 04:00 Laboratory Results - last 24 hr 04/14/20 16:27: PT 10.3, INR 0.92, APTT 28.2 04/14/20 16:27: Blood Type O Negative, Antibody Screen Negative, Crossmatch (AHG) See Detail 04/14/20 17:00: Blood Type Confirm O Negative 04/15/20 06:54: WBC 8.0 D, RBC 3.53 L, Hgb 11.1 L, Hct 35.8 L, MCV 101.6 H, MCH 31.4 H, MCHC 30.9 L, RDW 13.0, Plt Count 282 D, MPV 7.3 L, Neut % (Auto) 66.8, Lymph % (Auto) 23.9, [place] % (Auto) 4.4, Eos % (Auto) 4.6, Baso % (Auto) 0.4, Neut # (Auto) 5.4, Lymph # (Auto) 1.9, [place] # (Auto) 0.4, Eos # (Auto) 0.4, Baso # (Auto) 0.0 04/15/20 06:54: Sodium 136, Potassium 4.1, Chloride 103, Carbon Dioxide 28, Anion Gap 9.1, BUN 6 L D, Creatinine 0.50 L, Estimated Creat Clear 127, Estimated GFR 130, Est GFR ( Amer) 157 D, Glucose 115 H, Calcium 8.5 04/15/20 06:54: 25-OH Vitamin D Total 18.4 L I & O for Last 24 hours: Intake & Output 01/04/13/20 04/14/20 04/15/20 11:59 11:59 11:59 11:59 Intake Total 0 / 0 1260 / 1260 Output Total 400 / 400 950 / 950 Balance -400 / -400 310 / 310 Weight 135 lb 135 lb 1 oz - Constitutional no acute distress - *Routine Respiratory Exam Present: CTA bilaterally (Anteriorly and posteriorly) - *Routine Cardiovascular Exam Present: RRR - *Routine Abdominal Exam Present: soft, normoactive bowel sounds. Absent: tenderness - *Routine Exam Comments: She has a López catheter to bedside drainage - *Routine Extremities Exam Absent: edema, calf tenderness Comments: Left below the knee amputee. - *Routine Neurological Exam Present: alert, oriented X3 Assessment and Plan (1) Femoral neck fracture Status: Acute Category: Medical Code(s): S72.009A - Fracture of unspecified part of neck of unspecified femur, initial encounter for closed fracture (2) Hypothyroidism Status: Acute Category: Medical Code(s): E03.9 - Hypothyroidism, unspecified (3) Depression Status: Acute Category: Medical Code(s): F32.9 - Major depressive disorder, single episode, unspecified (4) History of left below knee amputation Status: Acute Category: Medical Code(s): Z89.512 - Acquired absence of left leg below knee <Gino Pickett - Last Filed: 04/15/20 12:47> Internal Medicine - PN: Subj *Date: 04/15/20 *Time: 12:47 Exam Vital signs and Labs for Last 24 Hours: Temp Pulse Resp BP Pulse Ox 98.2 F 81 16 126/67 97 04/15/20 08:00 04/15/20 08:00 04/15/20 08:00 04/15/20 08:00 04/15/20 08:00 Laboratory Results - last 24 hr 04/14/20 16:27: PT 10.3, INR 0.92, APTT 28.2 04/14/20 16:27: Blood Type O Negative, Antibody Screen Negative, Crossmatch (AHG) See Detail 04/14/20 17:00: Blood Type Confirm O Negative 04/15/20 06:54: WBC 8.0 D, RBC 3.53 L, Hgb 11.1 L, Hct 35.8 L, MCV 101.6 H, MCH 31.4 H, MCHC 30.9 L, RDW 13.0, Plt Count 282 D, MPV 7.3 L, Neut % (Auto) 66.8, Lymph % (Auto) 23.9, [place] % (Auto) 4.4, Eos % (Auto) 4.6, Baso % (Auto) 0.4, Neut # (Auto) 5.4, Lymph # (Auto) 1.9, [place] # (Auto) 0.4, Eos # (Auto) 0.4, Baso # (Auto) 0.0 04/15/20 06:54: Sodium 136, Potassium 4.1, Chloride 103, Carbon Dioxide 28, Anion Gap 9.1, BUN 6 L D, Creatinine 0.50 L, Estimated Creat Clear 127, Estimated GFR 130, Est GFR ( Amer) 157 D, Glucose 115 H, Calcium 8.5 04/15/20 06:54: 25-OH Vitamin D Total 18.4 L 04/15/20 06:54: HCG, Quant < 2 I & O for Last 24 hours: Intake & Output 01
[2020-04-15 09:45] LABS: HCG,Quantitative < 2 mIU/ml (0-5.42)
--- NOTE | 2020-04-15 15:52 | P.PN_ITS ---
[facility] Anesthesia Checklist - Patient Identification Patient Identification: Arm Band - Structural Data Admitted From: Home Planned Operative Procedure/s: left GIOVANNY Consent for Planned Operative Procedure(s) Verified: Yes Verified Documents: Surgical Consent, History and Physical - NPO Status Verified Time NPO: 00:00 - Additional verifications Anesthesia Reactions: No - Airway Assessment C-Spine Mobility Assessed: Yes (mp2) TMJ Mobility Assessed: Yes Dentition: Good Dentition - Neurological Assessment Level of Consciousness: Awake, Alert - Anesthesia Plan Anesthesia Risk discussed: Yes Anesthesia Plan: Verified ASA Class: II Anesthesia Type: MAC w/Spinal [facility] History I have reviewed the patient's past medical history: Yes Medical History: Reports:: Asthma, Depression Denies:: Cancer, Diabetes Mellitus Type 1, Diabetes Mellitus Type 2, MRSA *Have you ever received a pneumonia vaccine?: No *Have you received a flu vaccine this season?: Yes Other Medical History: Reports: Hypothyroidism, Other Anesthesia experience/problems:: nac Other Surgeries: Yes: Cholecystectomy, Other Amputation: Yes Fractures: No - *Social History Last grade of school completed: High school graduate Smoking Status: Never smoker Alcohol Intake: current Alcohol Intake Frequency:: holidays/special occasions only Substance Use Type: denies use *Occupational Status:: disabled Housing: house Household Members: spouse *Travel in the last 8 weeks: None - Psychiatric History Pschychiatric History:: Reports:: Depression Family Hx:: Non-contributory, Heart Attack
--- NOTE | 2020-04-15 16:20 | PC.NURSE ---
Pt has been pleasant and cooperative this shift. A&O X4. Pt has complained of pain X2 and has received Morphine per MAR with favorable results. Pt is on room air with sats. >90%. Lungs CTA. No edema noted. LT BKA present. IPC sleeve in place to the RLE. F/C patent and draining clear, yellow urine at bedside to gravity without issue. No BM this shift. 20 G peripheral IV in the RT AC is patent and infusing NS @ 100 ML/HR. VSS. Call light within reach. Will continue to monitor.
--- NOTE | 2020-04-15 18:54 | SUR.OPER ---
1854-family updated at this time
--- NOTE | 2020-04-15 19:33 | XR_ITS ---
PROCEDURE: XR HIP LT 2-3V W/PELVIS CLINICAL INDICATION: s/p left total hip arthroplasty Follow-up hip arthroplasty COMPARISON: CR XR HIP LT 2-3V W/PELVIS from 04/14/2020 FINDINGS: S/p total hip replacement on the left with good alignment. Postsurgical gas noted. López catheter is present. There is a lateral bone plate of the femur IMPRESSION: Status post total left hip replacement with good alignment Dictated by: Bony Hendricks MD 04/15/2020 21:55 Bony Hendricks MD in OV 04/15/2020 21:55
--- NOTE | 2020-04-15 20:04 | P.PN_ITS ---
[facility] Anesthesia Record Part I Intake, IV Amount: 1,700 Estimated blood loss (mL): 500 Urine output (mL): 500 Blood Products used (#): none Blood Pressure: 89/56 SaO2: 97 Pulse Rate: 99 Respiratory Rate: 18 Temperature: 98.9 F Patient is:: Drowsy, Stable Stable to PACU at:: 19:58
--- NOTE | 2020-04-15 20:23 | PC.NURSE ---
2006-radiology at bedside 2020-pt taking sips of water w/out difficulty, denies nausea
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
--- NOTE | 2020-04-15 20:39 | HMH.ORTHPN ---
Subjective Date: 04/15/20 Time: 20:45 Principal diagnosis: L femoral neck fracture Interval history: The patient underwent L femur removal of hardware and L total hip arthroplasty this evening without complication. Removed hardware was sent for culture. EBL 500cc, UOP 1500cc. PN: Obj Ex Vital signs: Temp Pulse Resp BP Pulse Ox 98.9 F 89 16 107/60 L 98 04/15/20 20:06 04/15/20 20:18 04/15/20 20:34 04/15/20 20:18 04/15/20 20:18 - Constitutional no acute distress - Routine HEENT Exam Head: Present: normocephalic Eye: Present: EOMI ENT: Present: mucous membranes moist - Routine Neck Exam Absent: tracheal deviation - Routine Respiratory Exam Absent: respiratory distress, wheezes - Routine Cardiovascular Exam Present: RRR - Routine Abdominal Exam Present: soft - Routine Extremities Exam Comments: L hip prevena incisional wound vac in place spinal still in effect, no motor/sensory below waist L thigh skin pink/warm L BKA present - Urinary Catheter Management López Cath placed during this visit: no Progress Note: A&P (1) Femoral neck fracture Status: Acute (2) Hypothyroidism Status: Acute (3) Depression Status: Acute (4) History of left below knee amputation Status: Acute Assessment and Plan for All Diagnoses:: 50yo F POD 0 s/p removal of hardware L femur + L GIOVANNY -- WBAT LLE, posterior hip precautions, abduction pillow -- PT/OT to eval -- do not remove Prevena -- pain medication: 1000mg tylenol q8hr scheduled, toradol PRN x4 doses, oxycodone 5mg q4hr PRN -- DVT prophy: aspirin 81mg BID starting tomorrow -- finish perioperative antibiotic prophy -- CBC in am, 2 units PRBC ordered yesterday to be held if needed -- ice pack L hip PRN -- medical management per PCP -- care management consult for dispo planning: anticipate d/c home with home PT, may need DME
--- NOTE | 2020-04-15 20:50 | PC.NURSE ---
patient up to floor from surgery.
--- NOTE | 2020-04-15 20:59 | PC.NURSE ---
2045-detailed report called to CODY Fernandez on Med/Surg 2048-pt transported to 2nd floor room 207 via hospital bed with remedios rails up per CODY Miranda and [facility] and left in care of CODY Fenrandez with bed locked in lowest position, vss, pt stable, family at bedside
[2020-04-16 00:55] VITALS: BP 102/52; PULSE 88; RESP 16; TEMP 36.4; O2SAT 94
[2020-04-16 01:55] VITALS: BP 88/58; PULSE 86; RESP 16; TEMP 36.7; O2SAT 93
--- NOTE | 2020-04-16 05:21 | PC.NURSE ---
Pt is A&Ox4. Lung sounds clear. No edema noted to extremities. HOB elevated to 30 degrees. Polar pack in place on Lt hip. Pt educated on IS use and instructions. Pt verbalizes understanding. IS @ best this shift 1,000 cc's. Rt SCUD remains in place this shift, along with abductor pillow. Dressing remains CDI. Spoke to Prevena Brittany worthy this shift regarding possible air leak to Prevena pump dressing. This nurse followed the troubleshooting directions and beeping did stop. Tegarderm applied to entire border of dressing as well to reinforce any further possibility of an air leak. Pt continues to tolerate RA appropriately w/ o2 sats >92%. López cath is draining clear, bright yellow urine per gravity. Pt has c/o lt hip pain x1 this shift. Pt medicated per MAY. No other acute changes or complaints at this time. Brittany- Prevena Pump rep . CALL FOR ANY QUESTIONS OR HELP
[2020-04-16 05:30] VITALS: BMI 21.2
[2020-04-16 06:50] LABS: Basophils % 0.1 % (0.1-2.0); Eosinophils % 0.4 % (0.1-12.0); Hematocrit 26.4 % (37.0-47.0); Lymphocytes # 1.6 K/mm3 (0.7-4.5); Lymphocytes % 19.5 % (10-50); Mean Corpuscular HGB Conc 34.3 g/dL (31.8-35.4); Mean Corpuscular Hemoglobin 34.1 pg (27.0-31.2); Mean Corpuscular Volume 99.4 fl (81-99); Monocytes # 0.5 K/mm3 (0.1-1.0); Monocytes % 6.3 % (1.7-9.3); Neutrophils % 73.7 % (37.0-80.0); Platelet Count 247 K/mm3 (142-424); Red Blood Count 2.66 M/mm3 (4.20-5.40); Red Cell Distribution Width 13.5 % (11.5-17.5); White Blood Count 8.1 K/mm3 (4.8-10.8)
[2020-04-16 07:03] LABS: Anion Gap 8.2 mEq/L (5-15); Blood Urea Nitrogen 4 mg/dl (7-17); Calcium 8.2 mg/dl (8.4-10.2); Carbon Dioxide 28 mmol/L (22.0-30.0); Chloride 104 mmol/L (98-107); Creatinine Clearance Estimated 128 mL/min (50-200); Estimated Glomerular Filt Rate 130 ml/min (>60); GFR (African American) 157 ML/MIN (>60); Glucose 125 mg/dl (74-100); Potassium 4.2 mmoL/L (3.5-5.1); Sodium 136 mmol/L (136-145)
[2020-04-16 08:00] VITALS: BP 100/47; PULSE 79; RESP 20; TEMP 36.6; O2SAT 95
--- NOTE | 2020-04-16 08:35 | HMH.ACPN2 ---
<Estelita Vasques - Last Filed: 04/16/20 08:35> Internal Medicine - PN: Subj *Date: 04/16/20 *Time: 08:35 Interval history: Patient has done well after her surgery. She states she has minimal pain. She slept well last night and is eating a good breakfast this morning. Exam Vital signs and Labs for Last 24 Hours: Temp Pulse Resp BP Pulse Ox 98.1 F 86 16 88/58 L 93 L 04/16/20 01:55 04/16/20 01:55 04/16/20 01:55 04/16/20 01:55 04/16/20 01:55 Laboratory Results - last 24 hr 04/15/20 06:54: HCG, Quant < 2 04/16/20 06:21: WBC 8.1, RBC 2.66 L, Hgb 9.0 L D, Hct 26.4 L, MCV 99.4 H, MCH 34.1 H, MCHC 34.3, RDW 13.5, Plt Count 247, MPV 8.0, Neut % (Auto) 73.7, Lymph % (Auto) 19.5, [place] % (Auto) 6.3, Eos % (Auto) 0.4, Baso % (Auto) 0.1, Neut # (Auto) 6.0, Lymph # (Auto) 1.6, [place] # (Auto) 0.5, Eos # (Auto) 0.0, Baso # (Auto) 0.0 04/16/20 06:21: Sodium 136, Potassium 4.2, Chloride 104, Carbon Dioxide 28, Anion Gap 8.2, BUN 4 L D, Creatinine 0.50 L, Estimated Creat Clear 128, Estimated GFR 130, Est GFR ( Amer) 157, Glucose 125 H, Calcium 8.2 L I & O for Last 24 hours: Intake & Output 04/13/20 04/14/20 04/15/20 04/16/20 11:59 11:59 11:59 11:59 Intake Total 0 / 0 1260 / 1260 3060 / 3060 Output Total 400 / 400 950 / 950 585 / 585 Balance -400 / -400 310 / 310 2475 / 2475 Weight 135 lb 135 lb 1 oz 135 lb 6.703 oz - Constitutional no acute distress - *Routine Respiratory Exam Present: CTA bilaterally - *Routine Cardiovascular Exam Present: RRR - *Routine Abdominal Exam Present: soft, normoactive bowel sounds. Absent: tenderness - *Routine Extremities Exam Absent: cyanosis, clubbing, edema Comments: Left below the knee amputee. - *Routine Skin Exam Present: warm. Absent: rash - *Routine Neurological Exam Present: alert, oriented X3 Assessment and Plan (1) Femoral neck fracture Status: Acute Category: Medical Code(s): S72.009A - Fracture of unspecified part of neck of unspecified femur, initial encounter for closed fracture (2) Hypothyroidism Status: Acute Category: Medical Code(s): E03.9 - Hypothyroidism, unspecified (3) Depression Status: Acute Category: Medical Code(s): F32.9 - Major depressive disorder, single episode, unspecified (4) History of left below knee amputation Status: Acute Category: Medical Code(s): Z89.512 - Acquired absence of left leg below knee - Assessment and plan all Dx Assessment and Plan for all problems:: Patient to work with physical therapy today. Ortho to follow. <Gino Pickett - Last Filed: 04/16/20 10:50> Internal Medicine - PN: Subj *Date: 04/16/20 *Time: 10:49 Exam Vital signs and Labs for Last 24 Hours: Temp Pulse Resp BP Pulse Ox 97.8 F 79 20 100/47 L 95 04/16/20 08:00 04/16/20 08:00 04/16/20 08:00 04/16/20 08:00 04/16/20 08:00 Laboratory Results - last 24 hr 04/16/20 06:21: WBC 8.1, RBC 2.66 L, Hgb 9.0 L D, Hct 26.4 L, MCV 99.4 H, MCH 34.1 H, MCHC 34.3, RDW 13.5, Plt Count 247, MPV 8.0, Neut % (Auto) 73.7, Lymph % (Auto) 19.5, [place] % (Auto) 6.3, Eos % (Auto) 0.4, Baso % (Auto) 0.1, Neut # (Auto) 6.0, Lymph # (Auto) 1.6, [place] # (Auto) 0.5, Eos # (Auto) 0.0, Baso # (Auto) 0.0 04/16/20 06:21: Sodium 136, Potassium 4.2, Chloride 104, Carbon Dioxide 28, Anion Gap 8.2, BUN 4 L D, Creatinine 0.50 L, Estimated Creat Clear 128, Estimated GFR 130, Est GFR ( Amer) 157, Glucose 125 H, Calcium 8.2 L I & O for Last 24 hours: Intake & Output 04/13/20 04/14/20 04/15/20 04/16/20 11:59 11:59 11:59 11:59 Intake Total 0 / 0 1260 / 1260 3300 / 3300 Output Total 400 / 400 950 / 950 585 / 585 Balance -400 / -400 310 / 310 2715 / 2715 Weight 135 lb 135 lb 1 oz 135 lb 6.703 oz Assessment and Plan (1) Femoral neck fracture Status: Acute Category: Medical Code(s): S72.009A - Fracture of unspecified part of neck of unspecified femur, initial encounter for closed fracture
--- NOTE | 2020-04-16 09:04 | HMH.PTEV ---
Physical Therapy Evaluation Rehab PT IP Evaluation Start: 04/15/20 20:16 Freq: ONCE Status: Active Protocol: Document 04/16/20 09:02 PHOMICA (Rec: 04/16/20 09:04 PHORNE [id number]) Subjective/History History History 50 yowf adm to [facility] after fall at home with L hip fx, Now S/P L GIOVANNY. She reports she lives at home with , no steps , she has hx of L BKA and uses a prosthesis. Subjective Subjective Pt reports no c/o this am. Rehab PT IP Eval Objective Appearance Patient Behavior Appropriate Patient Orientation Person,Place,Time Difficulty following instructions none Speech Pattern Clear Ambulation Observation IP General Gait Pattern Observation Decrease Weight Bear (L), Decrease Stride Lngth (L) Ambulation Distance (feet) 5 Ambulation Assistive Device Rolling Walker Ambulation Ability Supervision/Stand by Balance Ability to Arise Able, w/o using arms Sitting Balance Steady, safe Standing Balance Steady, wide stance Dynamic Sitting Balance Ability Good Dynamic Standing Balance Ability Good Transfers Bed Transfer Ability Supervision/Stand by Chair Transfer Ability Supervision/Stand by Sit to Stand Bed Transfer Ability Supervision/Stand by Sit to Stand Chair Transfer Ability Supervision/Stand by ROM All Extremities PT ROM Status WFL MMT All Extremities PT MMT WFL Rehab PT IP prob,goals,plan Problems Date of Evaluation: 04/16/20 PT IP Problems Bed Mobility,Transfers,Gait Rehab Potential Rehab Potential Good Plan PT Intervention Plan Bed Mobility,Transfers,Gait, Therapeutic Exercise PT Plan Frequency BID Duration LOS Discharge Goals Bed Transfer Ability Independent Sit to Stand Chair Transfer Ability Independent Ambulation Assistive Device Rolling Walker Ambulation Distance (feet) 10 Discharge Plan PT Discharge Plan Pt is appropriate to return home once medically stable. G -code Required No Eval Complexity Eval Charge Codes 96843 - Moderate Complexity PHYSICIAN CERTIFICATION: I certify the specified therapy services for Beverly Hernandez are required, authorized, and reviewed every 30 days.
--- NOTE | 2020-04-16 09:41 | HMH.OTEV ---
OT Inpatient Evaluation Rehab OT IP Evaluation Start: 04/15/20 20:16 Freq: ONCE Status: Complete Protocol: Document 04/16/20 09:35 [place] (Rec: 04/16/20 09:40 [facility] [id number]) Rehab OT IP Assessment Subjective History Pt oriented x 3 on arrival. Pt agreeable to engage in therapy evaluation. Pt was admitted via ED on 04/14/20 due to fall on L hip with pain. Pt has a past medical history of BKA (L leg), Hypothyroidism , depression, and allergic rhinitis. Pt reports prior to fall she lived at home with her . Pt claims she was independent with all ADLs and IADLs. Pt also still drove. She did use a prosthetic and a cane on uneven surfaces. Subjective I am not in much pain. Objective Patient Orientation Person,Place,Birthday Upper Extremity Gross ROM WFL Bed Mobility bed mobility-scooting,bed mobility - supine/sit,bed mobility - rolling Assist Level Supervision/Stand by Transfer Training Sit/Stand Transfer Assist Level Contact Guard/Hand Hold Chair Transfer Ability Contact Guard/Hand Hold Chair Transfer Technique Sit to/from Ambulatory Chair Transfer Assistive Devices Rolling Walker Rehab OT IP prob,goals,plan Problems Date of Evaluation: 04/16/20 OT IP Problems Bed Mobility,Transfers,Gait, Balance,Self care,Safety Rehab Potential Rehab Potential Good Equipment Needs Assistive Devices Standard Walker Plan OT intervention Plan Bed Mobility,Transfers,Gait, Balance,Self care,Safety, Therapeutic Exercise OT Plan Frequency Daily Duration LOS Discharge Goals Bed Mobility Ability Standby Assistance Sit to Stand Chair Transfer Ability Supervision/Stand by Chair Transfer Ability Supervision/Stand by Chair Transfer Technique Sit to/from Ambulatory Chair Transfer Assistive Devices Standard Walker Self care skills fully toilet trained,uses utensils to feed self Feeding Ability Independent Lower Body Dressing Ability Assistance X1 Upper Body Dressing Ability Standby Assistance Bathing Ability Assistance
--- NOTE | 2020-04-16 10:39 | SW/DCPLANNER ---
Addendum entered by Milagros Harding 04/16/20 14:22: Eva with [facility] of has stated that patient information/order has been reviewed and services will begin for this patient. Patients physical address is [facility] [place], [place] [address]. Addendum entered by Milagros Harding 04/16/20 13:24: This patient will discharge home today. I have faxed patient information/order to [facility]. I will follow up with [facility] once patient information is reviewed. Patient has no further needs at this time. Original Note: I have spoke with this patient regarding discharge plans. Patient stated that she resides at home with her and does well at home. Patient intends on returning home at time of discharge. Patient has stated that she has used [facility] in the past and will want to use their services again. Patient stated that she has appropriate DME at home. I will continue to follow up with this patient until medically stable for discharge and will set up with [facility].
[2020-04-16 11:57] VITALS: BP 103/62; PULSE 85; RESP 17; TEMP 36.7; O2SAT 97
--- NOTE | 2020-04-16 12:51 | HMH.ORTHPN ---
Subjective Date: 04/16/20 Time: 11:00 Principal diagnosis: L femoral neck fracture Interval history: The patient is doing well this morning and has minimal pain in the L hip. She got out of bed this morning and to a chair with PT, which went well. No f/c, no cp/soa, no abd pain, no n/v/d. PN: Obj Ex Vital signs: Temp Pulse Resp BP Pulse Ox 98.1 F 85 17 103/62 L 97 04/16/20 11:57 04/16/20 11:57 04/16/20 11:57 04/16/20 11:57 04/16/20 11:57 - Constitutional no acute distress - Routine HEENT Exam Head: Present: normocephalic Eye: Present: EOMI ENT: Present: mucous membranes moist - Routine Neck Exam Present: trachea midline - Routine Respiratory Exam Absent: respiratory distress, wheezes - Routine Cardiovascular Exam Present: RRR - Routine Abdominal Exam Present: soft. Absent: tenderness - Routine Extremities Exam Comments: L hip prevena incisional wound vac c/d/i no erythema L hip, minimal tenderness hip abduction pillow in place s/p L BKA, stump well-healed, appears healthy skin pink and warm with brisk capillary refill - Routine Skin Exam Present: warm - Routine Neurological Exam Present: alert, oriented X3, moving all extremities, normal tone, vision grossly intact, hearing grossly intact, normal speech. Absent: sensory deficit, motor deficit, altered mental status - Routine Psychiatric Exam Present: normal affect - Urinary Catheter Management Martínez Cath placed during this visit: no Progress Note: A&P (1) Femoral neck fracture Status: Acute (2) Hypothyroidism Status: Acute (3) Depression Status: Acute (4) History of left below knee amputation Status: Acute Assessment and Plan for All Diagnoses:: 50yo F POD 1 s/p removal of hardware L femur + L GIOVANNY -- d/c martínez now -- WBAT LLE, posterior hip precautions, abduction pillow -- PT/OT to continue while admitted; HHPT for home -- do not remove Prevena; no wound care needed. Do not remove vac, leave in place until follow-up in office with Dr. Peterson. When sleeping, plug cannister into wall product development actuary. -- pain medication: 1000mg tylenol q8hr scheduled, toradol PRN x4 doses, oxycodone 5mg q4hr PRN -- DVT prophy: aspirin 81mg BID starting today -- finish perioperative antibiotic prophy today -- ice pack L hip PRN -- medical management per PCP -- ok to d/c today from orthopaedic standpoint if medically cleared. Follow-up with Dr. Peterson in the office on at 9:15am.
--- NOTE | 2020-04-16 16:18 | P.PN_ITS ---
[facility] Anesthesia Record Part II Discharge Time: 20:48 Destination: Medical Surgical Department PACU nurse assessment reviewed?: Yes Patient Condition:: Good Anesthesia Complications:: None Swallowing reflex intact?: Yes Cyanosis?: No Blood Pressure: 106/58 Pulse Rate: 91 Temperature: 98.7 F Mental Status: Alert & Oriented Pain level:: 3 Nausea and/or vomitting:: None Intake, IV Amount: 0
[2020-04-16 16:19] VITALS: BP 106/58; PULSE 91; TEMP 37.1
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
== END 2020-04-16 16:15 | disposition home health service (06) | DRG 522 ==
LOC: ER 01:12 → 2ND 03:58
PROVIDERS: Orthopaedic Surgery; Admitting Provider Family Medicine; Emergency Provider Emergency Medicine; PCP Family Medicine; Visit Provider Family Medicine
PROC: 0SRB049 Replacement of Left Hip Joint with Ceramic on Polyethylene Synthetic Substitute, Cemented, Open Approach (ICD-10-PCS; CPT 27130; principal; 2020-04-15 13:00)
DX: S72.032A Displaced midcervical fracture of left femur, initial encounter for closed fracture (principal); M96.662 Fracture of femur following insertion of orthopedic implant, joint prosthesis, or bone plate, left leg; W01.0XXA Fall on same level from slipping, tripping and stumbling without subsequent striking against object, initial encounter; Y92.019 Unspecified place in single-family (private) house as the place of occurrence of the external cause; E03.9 Hypothyroidism, unspecified; Z89.512 Acquired absence of left leg below knee; Z79.899 Other long term (current) drug therapy
CPT/HCPCS: 27130; 36415; 73502; 73562; 73700; 80048; 80053; 81001; 82306; 84484; 84702; 85025; 85610; 85730; 86328; 86850; 90732; 96365; 96375; 97110; 97116; 97162; 97166; 97530; 99284; C1713; C1776; J2405; J3370

== ENCOUNTER → 2020-04-27 12:42 | Outpatient (CLI) | payer BC, SELFPAY ==
--- NOTE | 2020-04-27 12:53 | XR_ITS ---
PROCEDURE: XR HIP LT 2-3V W/PELVIS CLINICAL INDICATION: sp/ LT hip Follow-up left hip replacement COMPARISON: CR XR HIP LT 2-3V W/PELVIS from 04/15/2020 FINDINGS: Status post total hip prosthesis placement on the left with good alignment. There is also a lateral bone plate at the femur previously placed.. There is an old ununited fracture the greater trochanter on the right. IMPRESSION: Good alignment status post total left hip prosthesis placement Dictated by: Bony Hendricks MD 04/27/2020 13:44 Bony Hendricks MD in [place] 04/27/2020 13:44
== END ==
PROVIDERS: PCP Family Medicine; Visit Provider Orthopaedic Surgery
DX: S72.002A Fracture of unspecified part of neck of left femur, initial encounter for closed fracture (principal)
CPT/HCPCS: 73502

== ENCOUNTER → 2020-05-25 09:35 | Outpatient (CLI) | payer BC, SELFPAY ==
--- NOTE | 2020-05-25 09:40 | XR_ITS ---
PROCEDURE: XR HIP LT 2-3V W/PELVIS CLINICAL INDICATION: s/p L GIOVANNY 04/15/20 Follow-up hip replacement COMPARISON: CR XR KNEE LT 3V from 04/14/2020 CR XR HIP LT 2-3V W/PELVIS from 04/27/2020 FINDINGS: A left-sided total prosthesis present. There is good alignment. No evidence of dislocation. No acute fracture. The acetabular component appears to medial to the bony cortex the medial wall the acetabulum. This is not significantly changed. Heterotopic ossification is present along the right greater trochanter versus an old right greater trochanter fracture. There is a lateral bone plate at the mid and distal femur with folded fracture with dysplastic changes of the distal femur. No acute fracture or dislocation is evident. No significant change. IMPRESSION: Good alignment status post left hip prosthesis placement as described above. Mild acetabular protrusio. Dictated by: Bony Hendricks MD 05/25/2020 10:23 Bony Hendricks MD in [facility] 05/25/2020 10:23
== END ==
PROVIDERS: PCP Family Medicine; Visit Provider Orthopaedic Surgery
DX: S72.009A Fracture of unspecified part of neck of unspecified femur, initial encounter for closed fracture (principal)
CPT/HCPCS: 73502

== ENCOUNTER → 2020-05-29 13:14 | Outpatient (CLI) | payer BC, SELFPAY ==
--- NOTE | 2020-05-29 13:14 | XR_ITS ---
PROCEDURE: XR DEXA AXIAL SKELETON CLINICAL HISTORY: Screening COMPARISON: CR BONE3 BONE DENSITOMETRY(HIP:LT SPINE from 07/11/2016 FINDINGS: The right hip BMD is 0.657 with a T-score of -1.7. The left forearm BMD is 0.586 with a T-score of -1.8. The lumbar spine BMD is 0.841 with a T-score of -1.9. Previously the density within the right hepatic T-score of -1.9 and within the spine -1 point. IMPRESSION: This patient is considered osteopenic according to the World Health Organization criteria. Bone density is between 10 and 25 percent below young normal. Fracture risk is moderate. Treatment is advised. Based on these results a follow-up exam is recommended in 2 year. Dictated by: Bony Hendricks MD 05/30/2020 11:42 Bony Hendricks MD in [place] 05/30/2020 11:42
== END ==
PROVIDERS: PCP Family Medicine; Visit Provider Orthopaedic Surgery
DX: Z13.820 Encounter for screening for osteoporosis (principal); S72.002A Fracture of unspecified part of neck of left femur, initial encounter for closed fracture; M85.89 Other specified disorders of bone density and structure, multiple sites
CPT/HCPCS: 77080

== ENCOUNTER → 2020-06-11 14:59 | Outpatient (CLI) | payer BC, SELFPAY ==
--- NOTE | 2020-06-11 15:02 | MM_ITS ---
PROCEDURE: MM DIG SCREENING MAMM BI W/CAD Digital Breast Tomosynthesis Included CLINICAL INDICATION: screening There is a history of breast cancer patient's maternal grandmother diagnosed at age 70. There has been a previous biopsy left breast for benign disease. The patient is on control pills. COMPARISON: MG DMSB DIG MAMM-SCREEN VIDAL from 06/10/2015 MG DMSB DIG MAMM-SCREEN VIDAL W/CAD from 06/29/2016 MG SCBI MM Dig screening mamm BI w/CAD from 04/25/2018 TECHNIQUE: Standard CC and MLO images and 3D Tomosynthesis was obtained. R2 CAD reviewed. FINDINGS: Again noted is a markedly dense heterogenic parenchymal pattern lessening the sensitivity of mammography. There are 2 biopsy clips left breast. There are few scattered microcalcifications upper outer quadrants of both breasts which appear to be typical of sclerosing adenosis. There is no new or suspicious lesion in either breast and no suspicious microcalcifications. IMPRESSION: Diffusely dense parenchymal pattern with no suspicious lesions seen BI-RAD Category: 2 Benign Finding(s) FOLLOW-UP: 1YR 1 Year Follow-up (A letter has been sent to the patient regarding results of the study.) Dictated by: Dr. Joesph Galvez MD 06/12/2020 13:34 Dr. Joesph Galvez MD in [place] 06/12/2020 13:34
== END ==
PROVIDERS: PCP Family Medicine; Visit Provider Obstetrics & Gynecology
DX: Z12.31 Encounter for screening mammogram for malignant neoplasm of breast (principal)
CPT/HCPCS: 77063; 77067

== ENCOUNTER → 2020-07-06 12:26 | Outpatient (CLI) | payer BC, SELFPAY ==
--- NOTE | 2020-07-06 12:34 | XR_ITS ---
PROCEDURE: XR HIP LT 2-3V W/PELVIS CLINICAL INDICATION: LT hip Follow-up hip replacement COMPARISON: CR XR HIP LT 2-3V W/PELVIS from 05/25/2020 FINDINGS: Status post left hip hemiarthroplasty placement with good alignment. Lateral femoral bone plate is present in the mid and distal aspect of the femoral shaft with healing distal femoral fracture not significantly changed. There is good alignment. The acetabular cup slight Alayna projects medial to the iliopectineal line as before. Old ununited right greater trochanter fracture versus heterotopic ossification once again noted. IMPRESSION: Overall no change status post left hip hemiarthroplasty with lateral femur bone plate placement Dictated by: Bony Hendricks MD 07/06/2020 17:28 Bony Hendricks MD in [place] 07/06/2020 17:28
== END ==
PROVIDERS: PCP Family Medicine; Visit Provider Orthopaedic Surgery
DX: S72.002A Fracture of unspecified part of neck of left femur, initial encounter for closed fracture (principal)
CPT/HCPCS: 73502

== ENCOUNTER → 2020-08-22 12:44 | Outpatient (CLI) | payer BC, SELFPAY | PROVIDERS: Visit Provider Internal Medicine Gastroenterology | DX: Z01.812 Encounter for preprocedural laboratory examination (principal); Z11.52 Encounter for screening for COVID-19; Z12.11 Encounter for screening for malignant neoplasm of colon | CPT/HCPCS: U0003 ==

== ENCOUNTER 2020-08-24 10:24 | Day surgery (SDC) | payer BC, SELFPAY ==
[2020-08-19 14:08] VITALS: BMI 21.9
[2020-08-24] VITALS (7 sets, daily range): BP systolic 106–118; BP diastolic 46–79; PULSE 71–86; RESP 16–20; TEMP 36.1–36.8; O2SAT 97–100
[2020-08-24 10:50] LABS: Urine Pregnancy, HCG Qual. Negative (Negative)
--- NOTE | 2020-08-24 11:10 | HMH.ANESCL ---
[facility] Anesthesia Checklist - Additional verifications Anesthesia Reactions: No [facility] History Medical History: Reports:: Asthma, Depression Denies:: Cancer, Diabetes Mellitus Type 1, Diabetes Mellitus Type 2, Internal Pacemaker, MRSA, Seizures *Have you ever received a pneumonia vaccine?: No *Have you received a flu vaccine this season?: No Other Medical History: Reports: Hypothyroidism, Other Other Surgeries: Yes: Cholecystectomy, Other. No: Pacemaker Amputation: Yes (left BKA) Fractures: No - *Social History Last grade of school completed: Advanced degree Smoking Status: Never smoker Alcohol Intake: never Alcohol Intake Frequency:: a few times a week Substance Use Type: denies use *Occupational Status:: employed Housing: house Household Members: spouse *Travel in the last 8 weeks: None - Psychiatric History Pschychiatric History:: Reports:: Depression Family Hx:: No significant family history
--- NOTE | 2020-08-24 11:33 | P.PN_ITS ---
[facility] Anesthesia Checklist - Patient Identification Patient Identification: Arm Band - Structural Data Admitted From: Home Planned Operative Procedure/s: colonoscopy Consent for Planned Operative Procedure(s) Verified: Yes Verified Documents: Surgical Consent, History and Physical - NPO Status Verified Time NPO: 00:00 - Additional verifications Anesthesia Reactions: No - Airway Assessment C-Spine Mobility Assessed: Yes (mp2) TMJ Mobility Assessed: Yes Dentition: Good Dentition - Neurological Assessment Level of Consciousness: Awake, Alert - Anesthesia Plan Anesthesia Risk discussed: Yes Anesthesia Plan: Verified ASA Class: II Anesthesia Type: MAC [facility] History I have reviewed the patient's past medical history: Yes Medical History: Reports:: Asthma, Depression Denies:: Cancer, Diabetes Mellitus Type 1, Diabetes Mellitus Type 2, Internal Pacemaker, MRSA, Seizures *Have you ever received a pneumonia vaccine?: No *Have you received a flu vaccine this season?: No Other Medical History: Reports: Hypothyroidism, Other Anesthesia experience/problems:: nac Other Surgeries: Yes: Cholecystectomy, Other. No: Pacemaker Amputation: Yes (left BKA) Fractures: No - *Social History Last grade of school completed: Advanced degree Smoking Status: Never smoker Alcohol Intake: never Alcohol Intake Frequency:: a few times a week Substance Use Type: denies use *Occupational Status:: employed Housing: house Household Members: spouse *Travel in the last 8 weeks: None - Psychiatric History Pschychiatric History:: Reports:: Depression Family Hx:: No significant family history
--- NOTE | 2020-08-24 11:53 | HMH.PROC ---
[facility] Procedure Note Procedure Note:: Colonoscopy Procedure Report: Colonoscopy Endoscopist: Dennis Grullon II, MD Referring physician: Alberto Pickett MD Date of Procedure: August 24, 2020 Equipment: Olympus 190 variable stiffness pediatric colonoscope Sedation: MAC sedation Indication: Mrs. Hernandez is a 50-year-old female who is here for screening colonoscopy. She reports no abdominal pain, weight loss, change in her bowel habits or rectal bleeding. She reports no family history of colon cancer. She does have some mild chronic constipation which is unchanged. Procedure: Prior to the procedure, a history and physical exam was performed, and patient's medications and allergies were reviewed. The risks, benefits and alternatives of the sedation and procedure were discussed with the patient. All questions were answered and informed consent was obtained. The patient was brought to the procedure room. Patient identification and proposed procedure were verified by the physician and the nurse. The patient was placed in a left lateral decubitus position and the scope was passed under direct vision. Throughout the procedure, the patient's blood pressure, pulse, and oxygen saturations were monitored continuously. The colonoscopy was accomplished without difficulty. The patient tolerated the procedure well. Findings: On digital rectal examination there was normal rectal tone. There were no external hemorrhoids. The colonoscope was introduced through the anal canal to the rectum and advanced to the cecum. The ileocecal valve and appendiceal orifice were identified. The scope was advanced a short distance into the ileum which appeared grossly normal. The scope was then withdrawn into the colon. The cecum, ascending and transverse colon and mucosa were grossly normal. There were scattered diverticuli throughout the descending and sigmoid colon (LEFT colon). The rectum itself was normal. Upon retroflexion within the rectum there were grade 1-2 internal hemorrhoids. The preparation was excellent throughout with [place] Preparation Score of 9. The cecal time was 10 minutes. Impression: 1. Left-sided diverticulosis 2. Grade 1-2 internal hemorrhoids Plan: The patient will not require screening/surveillance colonoscopy again for 10 years by ACS guidelines. I would encourage a fiber bowel regimen on a long-term daily maintenance basis.
== END 2020-08-24 12:29 | disposition home or self-care (01) ==
LOC: OUTP 10:24
PROVIDERS: PCP Family Medicine; Visit Provider Internal Medicine Gastroenterology
PROC: 0DJD8ZZ Inspection of Lower Intestinal Tract, Via Natural or Artificial Opening Endoscopic (ICD-10-PCS; CPT 45378; principal; 2020-08-24 11:30)
DX: Z12.11 Encounter for screening for malignant neoplasm of colon (principal); K57.30 Diverticulosis of large intestine without perforation or abscess without bleeding; K64.0 First degree hemorrhoids; J45.909 Unspecified asthma, uncomplicated; F32.9 Major depressive disorder, single episode, unspecified; E03.9 Hypothyroidism, unspecified; Z89.519 Acquired absence of unspecified leg below knee; M85.80 Other specified disorders of bone density and structure, unspecified site; Z88.1 Allergy status to other antibiotic agents; Z88.2 Allergy status to sulfonamides; Z79.899 Other long term (current) drug therapy; Z79.3 Long term (current) use of hormonal contraceptives
CPT/HCPCS: 45378; 81025

== ENCOUNTER → 2020-11-24 12:30 | Outpatient (CLI) | payer BC, SELFPAY ==
--- NOTE | 2020-11-24 12:33 | XR_ITS ---
PROCEDURE: XR HIP LT 2-3V W/PELVIS CLINICAL INDICATION: sp LT total hip, sx 04/[address] Peterson COMPARISON: CR FEML2 FEMUR-LT-2 VIEWS from 01/17/2013 CR XR HIP LT 2-3V W/PELVIS from 07/06/2020 FINDINGS: Good alignment status post total left hip arthroplasty. A lateral bone plate is present from proximal to the distal shaft of the femur incompletely imaged distally. No orthopedic complications of the left hip prosthesis. Old fracture versus ununited ossification center the right greater trochanter. IMPRESSION: Good alignment status post left hip prosthesis placement Dictated by: Bony Hendricks MD 11/24/2020 14:19 Bony Hendricks MD in [place] 11/24/2020 14:19
== END ==
PROVIDERS: PCP Family Medicine; Visit Provider Orthopaedic Surgery
DX: Z09 Encounter for follow-up examination after completed treatment for conditions other than malignant neoplasm (principal)
CPT/HCPCS: 73502

== ENCOUNTER → 2021-01-26 11:53 | Outpatient (CLI) | payer BC, SELFPAY ==
--- NOTE | 2021-01-26 11:56 | XR_ITS ---
PROCEDURE: XR HIP LT 2-3V W/PELVIS CLINICAL INDICATION: LT HIP PAIN COMPARISON: CR XR HIP LT 2-3V W/PELVIS from 11/24/2020 FINDINGS: Status post total left hip replacement as previously described with good alignment. There is a lateral femur bone plate once again noted with an old mid to distal femur fracture. The acetabular cup appears to extend beyond the surface of the superior medial cortex of the acetabulum as before. No evidence of migration. There is an old ununited fracture of the right greater trochanter. IMPRESSION: No change status post left hip replacement with good alignment. Dictated by: Bony Hendricks MD 01/26/2021 12:31 Bony Hendricks MD in [place] 01/26/2021 12:31
--- NOTE | 2021-01-26 11:56 | XR_ITS ---
PROCEDURE: XR KNEE LT 3V CLINICAL INDICATION: ACUTE PAIN OF LT KNEE COMPARISON: CR KNEE3L KNEE-3 VIEWS-LT from 01/17/2013 CR XR KNEE LT 3V from 04/14/2020 FINDINGS: Status post BKA. Lateral femur bone plate is with a transverse lucency in the distal shaft of the femur similar to old previous exams. Osteoarthritic changes are present at knee. Dysplastic changes of the proximal tibia and distal femur similar to the previous studies. IMPRESSION: Prior BKA with chronic changes with lateral femur bone plate and multiple cortical screws. No acute finding. Dictated by: Bony Hendricks MD 01/26/2021 12:34 Bony Hendricks MD in [place] 01/26/2021 12:34
== END ==
PROVIDERS: PCP Family Medicine; Visit Provider Family Medicine
DX: M25.552 Pain in left hip (principal); M25.562 Pain in left knee
CPT/HCPCS: 73502; 73562

== ENCOUNTER 2021-10-29 13:09 | Outpatient (RCR) | payer BC, SELFPAY | END 2021-10-29 14:00 | disposition home or self-care (01) | LOC: PT 13:09 | PROVIDERS: Visit Provider Orthopaedic Surgery | DX: S82.002D Unspecified fracture of left patella, subsequent encounter for closed fracture with routine healing (principal) ==

== ENCOUNTER → 2022-03-02 16:27 | Outpatient (CLI) | payer BC, SELFPAY ==
--- NOTE | 2022-03-02 16:27 | MM_ITS ---
PROCEDURE INFORMATION: Exam: MG Bilateral Screening 3D Mammography Exam date and time: 03/02/2022 4:18 PM Age: 52 years old Clinical indication: Screening examination TECHNIQUE: Imaging protocol: Bilateral Screening tomosynthesis and 2D mammography including computer-aided detection (CAD) when performed. COMPARISON: 1. MG MM DIG SCREENING MAMM BI W/CAD 06/11/2020 2:58 PM 2. MG SCBI MM Dig screening mamm BI w/CAD 04/25/2018 10:27 AM FINDINGS: MAMMOGRAPHY: Breast composition: The breasts are extremely dense, which lowers the sensitivity of mammography. Mass: None. Architectural distortion: None. Calcifications: No suspicious calcifications. Asymmetric density: None. Skin thickening: None. Axillary adenopathy: None. IMPRESSION: No mammographic evidence of malignancy. Annual screening is recommended unless otherwise clinically indicated. ASSESSMENT: BI-RADS Category 1: Negative
== END ==
PROVIDERS: PCP Family Medicine; Visit Provider Obstetrics & Gynecology
DX: Z12.31 Encounter for screening mammogram for malignant neoplasm of breast (principal)
CPT/HCPCS: 77063; 77067

== ENCOUNTER → 2022-04-29 13:13 | Outpatient (CLI) | payer BC, SELFPAY ==
--- NOTE | 2022-04-29 13:19 | XR_ITS ---
FINAL REPORT TECHNIQUE: Chest PA & Lateral CLINICAL HISTORY: COVID 19 04/18/22 ,SOA FINDINGS: 2 views of the chest were performed. The heart size is normal. The mediastinum is within normal limits. There is no acute cardiopulmonary process. There are no pleural effusions. There is no pneumothorax. The bony thorax appears intact. IMPRESSION: No acute cardiopulmonary process. Reviewed, Interpreted and Dictated by Devyn Calderon MD Transcribed by Gini Flynn Authenticated and [facility]
[2022-04-29 14:24] LABS: Basophils # 0.1 K/mm3 (0-0.2); Eosinophils # 0.2 K/mm3 (0.0-0.4); Eosinophils % 2.6 % (0.1-12.0); Hematocrit 40.8 % (37.0-47.0); Hemoglobin 13.6 g/dL (12.2-16.2); Lymphocytes # 1.9 K/mm3 (0.7-4.5); Lymphocytes % 26.4 % (10-50); Mean Corpuscular HGB Conc 33.3 g/dL (31.8-35.4); Mean Corpuscular Hemoglobin 33.5 pg (27.0-31.2); Mean Corpuscular Volume 100.7 fl (81-99); Mean Platelet Volume 8.1 fl (7.4-10.4); Monocytes # 0.3 K/mm3 (0.1-1.0); Monocytes % 4.2 % (1.7-9.3); Neutrophils # 4.8 K/mm3 (1.8-7.8); Neutrophils % 65.8 % (37.0-80.0); Platelet Count 623 K/mm3 (142-424); Red Blood Count 4.05 M/mm3 (4.20-5.40); Red Cell Distribution Width 12.4 % (11.5-17.5); White Blood Count 7.3 K/mm3 (4.8-10.8)
[2022-04-29 14:59] LABS: Alanine Aminotransferase 30 U/L (12-78); Albumin Level 4.1 g/dl (3.5-5.0); Albumin/Globulin Ratio 1.5 (1.1-1.8); Alkaline Phosphatase 44 U/L (38-126); Aspartate Amino Transferase 26 U/L (14-36); Bilirubin,Total 0.3 mg/dl (0.2-1.3); Blood Urea Nitrogen 11 mg/dl (7-17); Carbon Dioxide 27 mmol/L (22.0-30.0); Chloride 107 mmol/L (98-107); Estimated Glomerular Filt Rate 87 ml/min (>60); GFR (African American) 106 ML/MIN (>60); Globulin 2.7 g/dL (1.3-3.2); Glucose 93 mg/dl (74-100); Sodium 139 mmol/L (136-145); Total Protein,Serum 6.8 g/dl (6.3-8.2)
== END ==
PROVIDERS: PCP Family Medicine; Visit Provider Physician Assistant
DX: R06.02 Shortness of breath (principal); U07.1 COVID-19
CPT/HCPCS: 36415; 71046; 80053; 85025

== ENCOUNTER → 2022-11-28 13:33 | Outpatient (CLI) | payer BC, SELFPAY ==
[2022-11-28 16:15] LABS: Iron 144 ug/dL (37-170)
[2022-11-28 16:33] LABS: T4 (Thyroxine) 10.1 ug/dl (5.53-11.0)
[2022-11-28 16:46] LABS: Thyroid Stimulating Hormone 1.69 uIU/mL (0.465-4.68)
[2022-11-30 09:55] LABS: FSH 4.3 mIU/mL (.)
== END ==
PROVIDERS: PCP Family Medicine; Visit Provider Family Medicine
DX: E03.9 Hypothyroidism, unspecified (principal); E55.9 Vitamin D deficiency, unspecified; G62.9 Polyneuropathy, unspecified; Z78.0 Asymptomatic menopausal state
CPT/HCPCS: 36415; 82306; 83001; 83002; 83540; 84436; 84443

== ENCOUNTER → 2023-01-18 11:22 | Outpatient (CLI) | payer BC, SELFPAY ==
--- NOTE | 2023-01-18 11:38 | XR_ITS ---
FINAL REPORT CLINICAL HISTORY: COUGH COMPARISON: 04/29/2022 FINDINGS: Two views of the chest were obtained. The heart size and pulmonary vascularity are within normal limits. The mediastinum is normal. No acute pulmonary abnormality is identified. There is no pneumothorax. The bony thorax is intact. IMPRESSION: No active cardiopulmonary disease. Reviewed, Interpreted and Dictated by Geoff Montanez III, MD Transcribed by Berkley Yeung Authenticated and [facility]
[2023-01-18 12:21] LABS: Basophils # 0.1 K/mm3 (0-0.2); Eosinophils # 0.1 K/mm3 (0.0-0.4); Eosinophils % 2.4 % (0.1-12.0); Hematocrit 42.9 % (37.0-47.0); Hemoglobin 14.6 g/dL (12.2-16.2); Lymphocytes # 1.6 K/mm3 (0.7-4.5); Mean Corpuscular HGB Conc 34.1 g/dL (31.8-35.4); Mean Corpuscular Hemoglobin 35.2 pg (27.0-31.2); Mean Corpuscular Volume 103.3 fl (81-99); Mean Platelet Volume 7.9 fl (7.4-10.4); Monocytes # 0.2 K/mm3 (0.1-1.0); Monocytes % 4.4 % (1.7-9.3); Neutrophils # 3.2 K/mm3 (1.8-7.8); Neutrophils % 61.2 % (37.0-80.0); Platelet Count 325 K/mm3 (142-424); Red Blood Count 4.16 M/mm3 (4.20-5.40); Red Cell Distribution Width 12.8 % (11.5-17.5); White Blood Count 5.2 K/mm3 (4.8-10.8)
[2023-01-18 12:50] LABS: Anion Gap 13.9 mEq/L (5-15); Blood Urea Nitrogen 13 mg/dl (7-17); Calcium 9.4 mg/dl (8.4-10.2); Carbon Dioxide 26 mmol/L (22.0-30.0); Chloride 104 mmol/L (98-107); Estimated Glomerular Filt Rate 129 ml/min (>60); GFR (African American) 156 ML/MIN (>60); Glucose 100 mg/dl (74-100); Potassium 4.9 mmoL/L (3.5-5.1); Sodium 139 mmol/L (136-145)
== END ==
PROVIDERS: Orthopaedic Surgery; PCP Family Medicine; Visit Provider Family Medicine
DX: R05.9 Cough, unspecified (principal); Z01.818 Encounter for other preprocedural examination; R73.09 Other abnormal glucose; Z87.898 Personal history of other specified conditions
CPT/HCPCS: 36415; 71046; 80048; 85025

== ENCOUNTER 2023-07-20 15:23 | Outpatient (CLI) | payer BC, SELFPAY ==
--- NOTE | 2023-07-20 15:27 | MM_ITS ---
PROCEDURE INFORMATION: Exam: MG Bilateral Screening 3D Mammography Exam date and time: 07/20/2023 3:16 PM Age: 53 years old Clinical indication: Screening mammogram TECHNIQUE: Imaging protocol: Bilateral Screening tomosynthesis and 2D mammography including computer-aided detection (CAD) when performed. COMPARISON: 1. MG MM DIG SCREENING MAMM BI W/CAD 03/02/2022 4:18 PM 2. MG MM DIG SCREENING MAMM BI W/CAD 06/11/2020 2:58 PM 3. MG SCBI MM Dig screening mamm BI w/CAD 04/25/2018 10:27 AM 4. MG DMSB DIG MAMM-SCREEN VIDAL W/CAD 06/29/2016 4:05 PM FINDINGS: MAMMOGRAPHY: Breast composition: The breast tissue is extremely dense, which lowers the sensitivity of mammography. Mass: None. Architectural distortion: No new or suspicious architectural distortion. Calcifications: Stable benign-appearing calcifications are present. No new or suspicious cluster of microcalcifications have developed. Asymmetric density: No new or suspicious asymmetric density is present Skin thickening: None. Axillary adenopathy: None. IMPRESSION: No mammographic evidence of malignancy. Recommend annual screening mammography unless otherwise clinically indicated. ASSESSMENT: BI-RADS category 2: Benign.
== END 2023-07-20 23:59 | disposition home or self-care (01) ==
LOC: RAD 15:23
PROVIDERS: PCP Family Medicine; Visit Provider Obstetrics & Gynecology Gynecology
DX: Z12.31 Encounter for screening mammogram for malignant neoplasm of breast (principal)
CPT/HCPCS: 77063; 77067

== ENCOUNTER 2023-10-16 08:52 | Outpatient (CLI) | payer BC, SELFPAY ==
--- NOTE | 2023-10-16 09:00 | XR_ITS ---
FINAL REPORT CLINICAL HISTORY: right shoulder pain FINDINGS: RIGHT SHOULDER Three views demonstrate no acute fracture or dislocation. There is slight elevation of the distal clavicle with respect to the acromion. No AC joint widening is seen. Please do the soft tissues are unremarkable. IMPRESSION: Mild elevation of the distal clavicle, favor positional/directional. Reviewed, Interpreted and Dictated by Kati Fung MD Transcribed by Meghann Spivey Authenticated and [facility]
== END 2023-10-16 23:59 | disposition home or self-care (01) ==
LOC: RAD 08:53
PROVIDERS: PCP Family Medicine; Visit Provider Physician Assistant Surgical
DX: M25.511 Pain in right shoulder (principal)
CPT/HCPCS: 73030

== ENCOUNTER 2023-12-14 12:25 | Outpatient (CLI) | payer BC, SELFPAY ==
--- NOTE | 2023-12-14 12:28 | XR_ITS ---
FINAL REPORT CLINICAL HISTORY: right hand weakness COMPARISON: None FINDINGS: RIGHT HAND Three views show no evidence of acute displaced fracture or dislocation of the visualized bony architecture. The joint spaces appear normal. IMPRESSION: Unremarkable exam. Reviewed, Interpreted and Dictated by Olu Servin MD Transcribed by Darcy Pineda Authenticated and . [facility]
== END 2023-12-14 23:59 | disposition home or self-care (01) ==
LOC: RAD 12:26
PROVIDERS: PCP Family Medicine; Visit Provider Physician Assistant
DX: M79.641 Pain in right hand (principal)
CPT/HCPCS: 73130

== ENCOUNTER 2024-03-11 15:00 | Outpatient (RCR) | payer BC, SELFPAY ==
--- NOTE | 2024-02-13 10:48 | HMH.OTOPEV ---
OT Inpatient Evaluation Rehab OT Outpatient Eval Start: 02/13/24 10:32 Freq: Status: Active Protocol: [facility]24 10:[facility] (Rec: 02/13/24 10:48 [facility] [id number]) E-signed By Kait Gordon, OT Outpatient Therapy Subjective History Subjective History Pt is a 54 year old female who reports to therapy with complaints of right shoulder pain. Pt explains difficulty with internal rotation while dressing and bathing. Pt also complains of pain while sleeping and laying on the right shoulder. Pt's pain/ discomfort began in right shoulder ~3 months ago and she does not recall a specific injury causing pain to begin. Pt does have a prosthetic on left leg (BKA) and requires use of cane in right hand at all times. Pt demonstrates with a slight decline in AROM and strength at right shoulder . Pt will continue to be seen twice a week in order to address all deficits. New diagnosis of cancer in past 12 No months? Chief Complaint Pain,Stiff,Weakness Symptom Type Ache,Throb,Dull Symptoms Relieved By Rest/Positioning Symptoms Aggravated By Physical Activity,Lifting Prior Functional Limitations None Current Functional Limitations Reaching,Lifting,Housework, Dressing,Sleeping Symptom Description Intermittent,Activity Dependent Level of pain today (0-10) 0 Pain scale - at its best (0-10) 0 Pain scale - at its worst (0-10) 4 Shoulder/Elbow Eval Shoulder Objective Measurements Shoulder ROM Right Shoulder Abduction Active Range of 145 Motion (degrees) Shoulder Flexion Active Range of Motion 150 (degrees) Query Text: Shoulder External Rotation Active Range 90 of Motion (degrees) Shoulder Internal Rotation Active Range 50 of Motion (degrees) Shoulder MMT Shoulder Abduction Strength Grade 4- Good- Shoulder Flexion Strength Grade 4- Good- Shoulder External Rotation Strength 4- Good- Grade Shoulder Internal Rotation Strength 4- Good- Grade Shoulder Strength Patient Testing Sitting Position Shoulder Special Tests impingement sign present shoulder exam right standard Shoulder Empty Can (Supraspinatus) Test Positive Right Shoulder [place] Impingement Positive Right Test Elbow Objective Measurements QuickDASH Activities Please rate your ability to do the following activities in the last week by selecting the number below the appropriate response. 1. Open a tight or new jar. Mild difficulty 2. Do heavy private household worker (e.g., wash No difficulty benavides, floors). 3. Carry a shopping bag or briefcase. No difficulty 4. Wash your back. Severe difficulty 5. Use a knife to cut food. No difficulty 6. Recreational activities in which you Moderate difficulty take some force or impact through your arm, shoulder, or hand (e.g., golf, hammering, tennis, etc.). 7. During the past week, to what extent Slightly has your arm, shoulder or hand problem interfered with your normal social activities with family, friends, neighbors or groups? 8. During the past week, were you Slightly limited limited in your work or other regular daily activites as a result of your arm, shoulder or hand problem? 9. Arm, shoulder or hand pain. Moderate 10. Tingling (pins and needles) in your None arm, shoulder or hand. 11. During the past week, how much Severe difficulty difficulty have you had sleeping because of the pain in your arm, shoulder or hand? Quick DASH 24 OT Outpatient Assessment Impairments Problems/Impairments Palpation Tenderness,Impaired Range of Motion,Impaired Strength,Impaired Endurance, Impaired Lifting,Impaired Shower/Bathing,Impaired Household Care,Subjective C/O Pain Prognosis Rehab Potential Good Clinical Impression Consistent with Diagnosis Yes Short Term Goals Number of Weeks 3 Increase Range of Motion Yes: Flex: 160 Abd: 155 IR: 60 Increase Strength Yes: 4/5 throughout right shoulder Increase Endurance Yes: Pt will tolerate right shoulder exercises for ~20 minutes prior to rest. Decrease Subjective C/O Pain Yes: 2/10 pain at worst Patient to be Ind w/ HEP Yes: [place] exercises GTB Improve Quick Dash Score Yes: Activities: 25 or below Filing Or Registry Clerk Goals Number of Weeks 6 Increase Range of Motion Yes: Flex: 170 Abd: 165 IR: 70 Increase Strength Yes: 5/5 throughout right shoulder Increase Endurance Yes: Pt will tolerate R shoulder exercises for ~30 minutes prior to rest. Decrease Subjective C/O Pain Yes: 1/10 at worst Patient to be Ind w/ Advanced HEP Yes: Advanced strengthening Improve Quick Dash Score Yes: Activities: 20 or below Outpatient Therapy Plan of Care Treatment Plan May Include Therapeutic Exercise Including Home Yes Exercise Program Manual Therapy Techniques Yes Neuromuscular Re-education Yes Therapeutic Activities to Return to Yes Previous Functional/Work Level Dry Needling Yes Thermal Modalities Yes Electrical Stimulation Yes Ultrasound/Phonophoresis Yes Iontophoresis Yes Orthotics/Bracing/Splinting Yes Massage Yes Eval/Re-Eval Yes Frequency Times per week 2 Duration Number of Weeks 6 Addendums This patient is a candidate for social No or vocational rehab? Patient/Guardian verbally acknowledges Yes understanding of treatment program and consents to further treatment? Patient/Guardian verbally acknowledges Yes understanding of diagnosis, prognosis and goals for treatment? Eval Complexity OT Charge 86564 - Moderate Complexity PHYSICIAN CERTIFICATION: I certify the specified therapy services for Beverly Hernandez are required, authorized, and reviewed every 30 days.
--- NOTE | 2024-03-18 14:37 | HMH.RHREAS ---
Rehab Reassessment Rehab OP Re-assessment Start: 02/13/24 10:10 Freq: Status: Active Protocol: Document 03/18/24 14:24 [facility] (Rec: 03/18/24 14:37 [facility] [id number]) E-signed By Kait Gordon OT Rehab Re-assessment Subjective Subjective It is still painful across my body and behind my back. Objective Objective Notes Pt continues to be seen twice a week in order to address right shoulder deficits. Each session, pt engages in AROM, AAROM, and strengthening exercises. Pt also receives PROM manual stretching to right shoulder in all planes: flexion, abduction, ER, and IR . Modalities are provided in order to decrease pain/ inflammation in the shoulder. Assessment Progress Assessment Slower Than Expected Assessment Notes Pt is very consistent about attending therapy sessions weekly. Pt is also consistent with completing HEP independently. Pt's AROM has improved since initial evaluation and she is within functional limits in all planes. However, pt is complaining of pain with internal rotation and across body movements reaching 4/10 at worst (same as initial evaluation). As of now, she does not have a follow up scheduled with ortho. Therapist recommends returning to ortho for re-evaluation and possible further imaging ( MRI) due to continued pain. Pt is agreeable with this plan at this time. Current R shoulder AROM: Flex: 165 degrees Abd: 165 degrees ER: 90 degrees IR: 65 degrees. Patient goals met ST-3, 5 Goals Not Met See below Revised Goals ST and 6 LT-6 Plan Plan Hold on tx at this time until patient returns to doctor for further recommendations and re -evaluation; pt agreeable. Frequency of Therapy 2x's a week Duration of therapy 4 more weeks Time and Billing Re-Eval Time 9 Re-Eval Billing Units 1 Charge for OT reassessment? Yes PHYSICIAN CERTIFICATION: I certify the specified therapy services for Beverly Hernandez are required, authorized, and reviewed every 30 days.
== END 2024-03-19 23:59 | disposition home or self-care (01) ==
LOC: OT 15:00
PROVIDERS: PCP Family Medicine; Visit Provider Physician Assistant
DX: M25.511 Pain in right shoulder (principal); M89.8X1 Other specified disorders of bone, shoulder
CPT/HCPCS: 97014; 97110; 97140; 97166; 97168; 97530; G0283

== ENCOUNTER 2024-04-16 12:44 | Outpatient (CLI) | payer BC, SELFPAY ==
--- NOTE | 2024-04-16 12:47 | XR_ITS ---
FINAL REPORT CLINICAL HISTORY: Rt Shoulder pain COMPARISON: 10/16/2023 FINDINGS: RIGHT SHOULDER Three views demonstrate no acute fracture or dislocation. The visualized joint spaces are normally aligned. The soft tissues are unremarkable. IMPRESSION: No acute bony abnormality. Reviewed, Interpreted and Dictated by Devyn Calderon MD Transcribed by Kalpana Garcia Authenticated and [facility]
== END 2024-04-16 23:59 | disposition home or self-care (01) ==
LOC: RAD 12:45
PROVIDERS: PCP Family Medicine; Visit Provider Physician Assistant
DX: M25.511 Pain in right shoulder (principal)
CPT/HCPCS: 73030

== ENCOUNTER 2024-05-07 15:23 | Outpatient (CLI) | payer BC, SELFPAY ==
--- NOTE | 2024-05-07 15:26 | US_ITS ---
FINAL REPORT TECHNIQUE: Limited sonographic images were obtained through the right axilla. CLINICAL HISTORY: HODGKINS NODULE COMPARISON: None FINDINGS: There are some mildly prominent lymph nodes in the right axilla, the largest measuring 2.4 cm. This lymph node has a fatty hilum and a benign appearance. There is a hypoechoic tubular structure that does not contain blood flow, etiology is unclear. A small fluid collection is difficult to exclude. IMPRESSION: Tubular fluid within the right axilla of uncertain etiology, could be edema or fluid collection. Mildly prominent but benign appearing right axillary lymph nodes. Reviewed, Interpreted and Dictated by Kati Fung MD Transcribed by Kalpana Garcia Authenticated and [facility]
== END 2024-05-07 23:59 | disposition home or self-care (01) ==
LOC: RAD 15:23
PROVIDERS: PCP Family Medicine; Visit Provider Family Medicine
DX: C81.14 Nodular sclerosis Hodgkin lymphoma, lymph nodes of axilla and upper limb (principal)
CPT/HCPCS: 76642

== ENCOUNTER 2024-07-24 14:05 | Outpatient (CLI) | payer BC, SELFPAY ==
--- OUTSIDE RECORDS SUMMARY | 2024-07-24 14:06 | XMS_ITS | Continuity of Care Document ---
Author Organization [facility] Phone Care Team Providers Care Pharmacy Buyer Name Role Phone SHIVANI EMEKS Primary Attending [place] Primary Care SHIVANI MEEKS Admitting SHIVANI MEEKS Unavailable ALLERGIES AND ADVERSE REACTIONS ALLERGIES AND ADVERSE REACTIONS Code System Allergy Substance Adverse Reaction Date Reaction (Severity) Comment Status Reported By Updated By [id number] SNOMED CT Sulfa Antibiotics Adverse reaction to substance Not Specified active [id number] on October 24, 2021 1:43:45 AM [facility] 2582 RXNorm Clindamycin Adverse reaction to substance Not Specified active [id number] on October 24, 2021 1:43:45 AM [facility] MEDICATIONS HOME MEDICATIONS Status RXNORM NDC Medication Dose Route Frequency Dates Comments Reported By Updated By Drug Treatment Unknown DISCHARGE MEDICATIONS Status RXNORM NDC Medication Dose Route Frequency Dates Comments Physician Updated By No Discharge Medication Info rmation Available INPATIENT MEDICATIONS Status RXNORM NDC Medication Dose Route Frequency Rat e Quantity Dates Comments Physician Updated By No Inpatient Medication Info rmation Available SOCIAL HISTORY SOCIAL HISTORY SNOMED-CT Social History Element Description Effective Dates Offered Cessation Comment UpdatedBy [id number] Smoking Status Unknown If Ever Smoked SOCIAL HISTORY - Gender Sex: Female SOCIAL HISTORY - Status : status i nformation is not available Intention in Next Year: intention information is not available SOCIAL HISTORY - Sexual Behavior Sexual Orientation Gender Identity SNOMED-CT Description SNO MED -CT Description Activity Level No of Partners Partner Type UpdatedBy Information is not available HEALTH CONCERNS Problems Concern Status Health Concern problem infor mation not available. Smoking Status Status Years Used Consumed packs p er day Health Concern smoking histo ry information not available. Family History Concern Status Health Concern family histor y information not available. ENCOUNTERS ENCOUNTER INFORMATION Reason for Visit SLEEP STUDY Admission June 24, 2024 5:33:00 PM UTC [facility] [address] [facility] [phone] Discharge June 24, 2024 5:33:00 PM UTC DIS CHARGED TO HOME OR SELF CARE ENCOUNTER DIAGNOSES Notes information is not andrew ilable. Code System Diagnosis Onset Date Diagnosis information is not available. ABSTRACT DIAGNOSES Code System Diagnosis Updated By G47.10 ICD10 HYPERSOMNIA, UNSPECIFIED MCI 3711 on June 21, 2024 4:54:49 PM UTC G47.10 ICD10 HYPERSOMNIA, UNSPECIFIED ILX 3573 on June 26, 2024 3:35:13 AM UTC CARE TEAM Care Pharmacy Buyer Role SHIVANI MEEKS Primary Attending [place] Primary Care SHIVANI MEEKS Admitting SHIVANI MEEKS Referring CARE TEAM CARE energy director Role on Team Status Start Date End Date Update d By REI JEWELL HEN PCP normal June 24, 2024 4:00:00 AM UTC June 24, 2024 5:33:00 PM UTC [id number] on June 24, 2024 5:34:25 PM UTC NO DEFINED PRIMARY C PCP normal June 21, 2024 4:54:49 PM UTC June 24, 2024 4:00:00 AM UTC [id number] on June 24, 2024 5:34:25 PM UTC CONSTANTINO MILLER Referring normal June 21 4:54:49 PM UTC June 24, 2024 5:33:00 PM UTC [id number] on June 24, 2024 5:34:25 PM UTC CONSTANTINO MILLER Attending normal June 21 4:54:49 PM UTC June 24, 2024 5:33:00 PM UTC [id number] on June 24, 2024 5:34:25 PM UTC CONSTANTINO MILLER Admitting normal June 21 4:54:49 PM UTC June 24, 2024 5:33:00 PM UTC [id number] on June 24, 2024 5:34:25 PM UTC
--- OUTSIDE RECORDS SUMMARY | 2024-07-24 14:07 | XMS_ITS | Continuity of Care Document ---
Author Organization [place] [facility] [place] [facility] - [place] Address [address] [place] [address] Care Team Providers Care Vmware Administrator Name Role Phone BEST MINAYA Primary Care Provider [phone] Assessment No assessment recorded. Plan of Treatment Reminders Order Date Submit Date Provider Last Modified By Organization Details Last Modified Time Details Appointments None recorded. Lab None recorded. Referral None recorded. Procedures None recorded. Surgeries None recorded. Imaging home sleep study - T approved under dr gipson please call and schedule order ID [id number] [facility] scanned in mariela 2024 025 [email or web address] [facility] (Centralized Scheduling), [address] [facility], [place], [address], 17:01:45 Medication Orders None recorded. Patient TargetsNo targets recorded. Patient InstructionsNo instructions recorded. Reason for Referral None Reported. Results Created Date Observation Date Name Description Value Unit Range Abnormal Flag Note LastModifiedBy Organization Detail LastModifiedTime 06/13/1906/12/2024 epwor th sleep iness scale * No observ ation record ed. [email or web address] Not Available 06/12 15:28:08 07/02/1906/25/2024 home sleep study No observ ation record ed. [email or web address] Not Available 07/01 10:13:21 Result Notes None recorded. Medical Equipment None Reported. Medications Name Sig Start Date Stop Date Status Note LastModified by Organization Details LastModified Time benzonatate 100 mg capsule TAKE 1 CAPSULE BY MOUTH THREE TIMES DAILY NEEDED FOR COUGH 06/12 completed Not Available Not Available Not Available nortriptyli ne 10 mg/5 mL oral solution TAKE 12.5 ML BY MOUTH ONCE DAILY active Not Available Not Available No t Available gabapentin 300 mg capsule TAKE 5 TO 7 CAPSULES BY MOUTH AT BEDTIME active Not Available Not Available No t Available cefdinir 250 mg/5 mL oral suspension TAKE 6 ML BY MOUTH TWICE DAILY 06/12 completed Not Available Not Available Not Available trazodone 150 daily active Not Available Not Available Not Available cetirizine 1 mg/mL oral solution TAKE 10 ML BY MOUTH ONCE DAILY NEEDED FOR RUNNY NOSE active Not Available Not Available No t Available Tirosint 150 mcg capsule TAKE 1 CAPSULE BY MOUTH ONCE DAILY active Not Available Not Available No t Available La 0.1 mg/24 hr transdermal patch APPLY 1 PATCH TOPICALLY TWICE A WEEK active Not Available Not Available No t Available Lyllana 0.05 mg/24 hr transdermal patch APPLY 1 PATCH TOPICALLY TWICE A WEEK active Not Available Not Available No t Available Paxlovid 300 mg (150 mg x 2)-100 mg tablets in a dose pack TAKE 3 TABLETS TOGETHER (TWO 150 MG NIRMATREL VIR TABLETS AND ONE 100 MG RITONAVIR TABLET) BY MOUTH TWICE DAILY FOR 5 DAYS. 06/12 completed Not Available Not Available Not Available Vitals Date Recorded Body weight Body temperature Oxygen saturation Oxygen saturation in Arterial blood by Pulse oximetry Heart rate Systolic blood pressure Diastolic blood pressure Provider Name and Address Organization Details Last Updated DateTime 5 25500.1 9 g 99.8 [degF] 97 % 97 % 82 /min 118 mm[Hg] 66 mm[Hg] [facility] & [place] 14:02:09 Social History None recorded. Functional Status None recorded. Mental Status None recorded. Family History Nothing Reported. Medical History No medical history recorded. Gynecological HistoryNo gynecological history recorded. Obstetrics History GPAL:G 0 P 0 0 0 0 Past Encounters Encounter ID Performer Location Encounter Start Date Encounter Closed Date Diagnosis/Indication Diagnosis SNOMED-CT Code Diagnosis ICD10 Code Diagnosis Note [id number] MD [facility] [place] [address] [place] [address] 06/12/2024 13:57:01 06/12/2024 14:32:33 Hypersomnia 26865275 G47.10 Classic presentati on for obstructiv e sleep apnea but certainly needs to be ruled out before more aggressive treatment strategies for insomnia pursued. Consider in-lab study if her home sleep study is negative. History of menopause so the addition of clonidine to be another thing we could look at. Of course she can always try Ambien CR or similar again Chronic insomnia 0920170 04 F51.04 Health Concerns Section Related Observation LastModified by Organization Detai ls LastModified Time None Recorded Concern Status LastModified by Organization Details LastModified Time None Recorded Payers Encounter Date Sequence Insurance Name Policy Number Policy Ashby Covered Member ID Ashby Member ID Guarantor Name 06/12/2024 1 [place] [id number] Te Hernandez [id number] Beverly Hernandez 06/12/2024 2 [place] ([place]ICARE) Beverly Hernandez [id number] Beverly Micah David Notes Date Note Type Note Provider Name and Address Organization Details Recorded Time 06/12/2024 text/html she is here for sleep medicine evaluation. Her primary care provider recommended evaluation for chronic persistent hypersomnia and insomnia symptoms. Patient reports lot of issues with sleep. She was describes sleep onset and maintenance insomnia.she is currently on trazodone 150 mg daily which was just started recently. 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 She had a sleep study done about 10 years ago which was unremarkable. Her [place] sleepiness scale is 0/24. Her BMI is less than 30. Her neck circumference is less than 15. Issues also with menopause which she is doing hormone supplementation. Alberto Gipson MD [address], [place], [address], [facility] - [place] & [place] 06/12/2024 14:38:23 OBGyn Episode No OBEpisode recorded.
--- OUTSIDE RECORDS SUMMARY | 2024-07-24 14:07 | XMS_ITS | Data Portability ---
Author Organization [facility] [place] & LARRY Ruiz ADMIN Address [address] [place] [address] Care Team Providers Care Bulk Driver Name Role Phone BEST MINAYA Primary Care Provider Assessment No assessment recorded. Plan of Treatment Reminders Order Date Submit Date Provider Last Modified By Organization Details Last Modified Time Details Appointments None recorded. Lab None recorded. Referral None recorded. Procedures None recorded. Surgeries None recorded. Imaging home sleep study - T approved under dr gipson please call and schedule order ID [id number] [facility] scanned in rogers 2024 025 [email or web address] [facility] (Centralized Scheduling), [address] [facility], [place], [address], 17:01:45 Medication Orders None recorded. Patient TargetsNo targets recorded. Patient InstructionsNo instructions recorded. Reason for Referral None Reported. Results Created Date Observation Date Name Description Value Unit Range Abnormal Flag Note LastModifiedBy Organization Detail LastModifiedTime 06/13/1906/12/2024 epwor th sleep iness scale * No observ ation record ed. [email or web address] Not Available 06/12 15:28:08 07/02/19 25 06/25/2024 home sleep study No observ ation record ed. [email or web address] Not Available 07/01 10:13:21 Result Notes None recorded. Procedures Surgical History None recorded. Imaging Results Imaging Date Name Status LastModified by Organiz ation Details LastModified Time 06/12/2024 epworth sleepiness scale* completed Information not available 06/12/2024 15:28:08 06/25/2024 home sleep study completed Information not available 07/01/2024 10:13:21 Procedure Notes None recorded. Medical Equipment None Reported. [...] Address Organization Details Last Updated DateTime 5 37548.1 9 g 99.8 [degF] 97 % 97 % 82 /min 118 mm[Hg] 66 mm[Hg] [facility] & [place] 5 14:02:09 Social History None recorded. Functional Status None recorded. Mental Status None recorded. Family History Nothing Reported. Medical History No medical history recorded. Gynecological HistoryNo gynecological history recorded. Obstetrics History GPAL:G 0 P 0 0 0 0 Past Encounters Encounter ID Performer Location Encounter Start Date Encounter Closed Date Diagnosis/Indication Diagnosis SNOMED-CT Code Diagnosis ICD10 Code Diagnosis Note [id number] Alberto Gipson MD [facility] - [place] [address] [place] [address] 06/12/2024 13:57:01 06/12/2024 14:32:33 Hypersomnia 03160962 G47.10 Classic presentati on for obstructiv e sleep apnea but certainly needs to be ruled out before more aggressive treatment strategies for insomnia pursued. Consider in-lab study if her home sleep study is negative. History of menopause so the addition of clonidine to be another thing we could look at. Of course she can always try Ambien CR or similar again Chronic insomnia 3946565 04 F51.04 Health Concerns Section Related Observation LastModified by Organization Detai ls LastModified Time None Recorded Concern Status LastModified by Organization Details LastModified Time None Recorded Advance Directives Directive None Recorded Payers Insurance Date Sequence Insurance Name Policy Number Policy Ashby Covered Member ID Ashby Member ID Guarantor Name 06/12/2024 1 [place] (PPO) [id number] Te Hernandez [id number] Beverly Micah Hernandez 06/12/2024 2 [place] Beverly L David [id number] Beverly Hernandez Notes Date Note Type Note Provider Name [...] 10 years ago which was unremarkable. Her [place] sleepiness scale is 0/24. Her BMI is less than 30. Her neck circumference is less than 15. Issues also with menopause which she is doing hormone supplementation. Alberto Gipson MD [address], [place], [address], [facility] & [place] 06/12/2024 14:38:23 OBGyn Episode No OBEpisode recorded.
--- NOTE | 2024-07-24 14:08 | MM_ITS ---
PROCEDURE INFORMATION: Exam: MG Bilateral Screening 3D Mammography Exam date and time: 07/24/2024 2:32 PM Age: 54 years old Clinical indication: Screening examination TECHNIQUE: Imaging protocol: Bilateral Screening tomosynthesis and 2D mammography including computer-aided detection (CAD) when performed. COMPARISON: 1. MG MM DIG SCREENING MAMM BI W/CAD 07/20/2023 3:16 PM 2. MG MM DIG SCREENING MAMM BI W/CAD 03/02/2022 4:18 PM FINDINGS: MAMMOGRAPHY: Breast composition: The breasts are extremely dense, which lowers the sensitivity of mammography. Mass: No suspicious masses. Architectural distortion: None. Calcifications: No suspicious calcifications. Asymmetric density: None. Skin thickening: None. Axillary adenopathy: None. IMPRESSION: No mammographic evidence of malignancy. Annual screening is recommended unless otherwise clinically indicated. ASSESSMENT: BI-RADS Category 1: Negative.
== END 2024-07-24 23:59 | disposition home or self-care (01) ==
LOC: RAD 14:05
PROVIDERS: PCP Family Medicine; Visit Provider Obstetrics & Gynecology Gynecology
DX: Z12.31 Encounter for screening mammogram for malignant neoplasm of breast (principal)
CPT/HCPCS: 77063; 77067

== ENCOUNTER 2024-07-25 14:54 | Outpatient (CLI) | payer BC, SELFPAY ==
--- OUTSIDE RECORDS SUMMARY | 2024-07-25 14:57 | XMS_ITS | Data Portability ---
Author Organization [facility] - [place] & LARRY Ruiz ADMIN Address [address] [place] [address] Care Team Providers Care Rough Patcher Name Role Phone BEST MINAYA Primary Care Provider [phone] Assessment No assessment recorded. Plan of Treatment Reminders Order Date Submit Date Provider Last Modified By Organization Details Last Modified Time Details Appointments None recorded. Lab None recorded. Referral None recorded. Procedures None recorded. Surgeries None recorded. Imaging home sleep study - T approved under dr gipson please call and schedule order ID [id number] [facility] scanned in [place] 2024 025 [email or web address] [facility] (Centralized Scheduling), [address] [facility], [place], [address], 17:01:45 Medication Orders None recorded. Patient TargetsNo [...] Address Organization Details Last Updated DateTime 5 74329.1 9 g 99.8 [degF] 97 % 97 % 82 /min 118 mm[Hg] 66 mm[Hg] [facility] & [place] 5 14:02:09 Social History None recorded. Functional Status None recorded. Mental Status None recorded. Family History Nothing Reported. Medical History No medical history recorded. Gynecological HistoryNo gynecological history recorded. Obstetrics History GPAL:G 0 P 0 0 0 0 Past Encounters Encounter ID Performer Location Encounter Start Date Encounter Closed Date Diagnosis/Indication Diagnosis SNOMED-CT Code Diagnosis ICD10 Code Diagnosis Note [id number] Alberto Gipson MD [facility] [address] [place] [address] 06/12/2024 13:57:01 06/12/2024 14:32:33 Hypersomnia 77517872 G47.10 Classic presentati on for obstructiv e sleep apnea but certainly needs to be ruled out before more aggressive treatment strategies for insomnia pursued. Consider in-lab study if her home sleep study is negative. History of menopause so the addition of clonidine to be another thing we could look at. Of course she can always try Ambien CR or similar again Chronic insomnia 6191102 04 F51.04 Health Concerns Section Related Observation LastModified by Organization Detai ls LastModified Time None Recorded Concern Status LastModified by Organization Details LastModified Time None Recorded Advance Directives Directive None Recorded Payers Insurance Date Sequence Insurance Name Policy Number Policy Ashby Covered Member ID Ashby Member ID Guarantor Name 06/12/2024 1 [place]UE [place] (PPO) [id number] Te Hernandez [id number] Beverly Micah Hernandez 06/12/2024 2 [place] Beverly L David [id number] Beverly Hernandez Notes Date Note Type [...] 10 years ago which was unremarkable. Her [place] sleepiness scale is 0/24. Her BMI is less than 30. Her neck circumference is less than 15. Issues also with menopause which she is doing hormone supplementation. Alberto Gipson MD [address], [place], [address], [facility] & [place] 06/12/2024 14:38:23 OBGyn Episode No OBEpisode recorded.
--- OUTSIDE RECORDS SUMMARY | 2024-07-25 14:57 | XMS_ITS | Continuity of Care Document ---
Author Organization [place] - NT [facility] [place] Address [address] [place] [address] Care Team Providers Care Transportation Manager Name Role Phone BEST MINAYA Primary Care Provider Assessment No assessment recorded. Plan of Treatment Reminders Order Date Submit Date Provider Last Modified By Organization Details Last Modified Time Details Appointments None recorded. Lab None recorded. Referral None recorded. Procedures None recorded. Surgeries None recorded. Imaging home sleep study - T approved under dr gipson please call and schedule order ID [id number] [facility] scanned in mariela 2024 025 [id number] [facility] (Centralized Scheduling), [address], [place], [address], 17:01:45 Medication Orders None recorded. Patient TargetsNo [...] Address Organization Details Last Updated DateTime 5 31954.1 9 g 99.8 [degF] 97 % 97 % 82 /min 118 mm[Hg] 66 mm[Hg] [facility] & [place] 14:02:09 Social History None recorded. Functional Status None recorded. Mental Status None recorded. Family History Nothing Reported. Medical History No medical history recorded. Gynecological HistoryNo gynecological history recorded. Obstetrics History GPAL:G 0 P 0 0 0 0 Past Encounters Encounter ID Performer Location Encounter Start Date Encounter Closed Date Diagnosis/Indication Diagnosis SNOMED-CT Code Diagnosis ICD10 Code Diagnosis Note [id number] MD [facility] [place] [address] [place] [address] 06/12/2024 13:57:01 06/12/2024 14:32:33 Hypersomnia 59055538 G47.10 Classic presentati on for obstructiv e sleep apnea but certainly needs to be ruled out before more aggressive treatment strategies for insomnia pursued. Consider in-lab study if her home sleep study is negative. History of menopause so the addition of clonidine to be another thing we could look at. Of course she can always try Ambien CR or similar again Chronic insomnia 4552857 04 F51.04 Health Concerns Section Related Observation LastModified by Organization Detai ls LastModified Time None Recorded Concern Status LastModified by Organization Details LastModified Time None Recorded Payers Encounter Date Sequence Insurance Name Policy Number Policy Ashby Covered Member ID Ashby Member ID Guarantor Name 06/12/2024 1 [place] [id number] Te Hernandez [id number] Beverly Hernandez 06/12/2024 2 [place] Beverly Hernandez [id number] Beverly Micah David Notes Date Note [...] 10 years ago which was unremarkable. Her [place] sleepiness scale is 0/24. Her BMI is less than 30. Her neck circumference is less than 15. Issues also with menopause which she is doing hormone supplementation. Alberto Gipson MD [address], [place], [address], [facility] [place] & [place] 06/12/2024 14:38:23 OBGyn Episode No OBEpisode recorded.
[2024-08-08 09:22] LABS: IgG P58 Ab. ABSENT; IgG P66 Ab. ABSENT; IgG P93 Ab. ABSENT
[2024-08-08 09:23] LABS: IgG P18 Ab. ABSENT; IgG P23 Ab. ABSENT; IgG P28 Ab. ABSENT; IgG P30 Ab. ABSENT; IgG P39 Ab. ABSENT; IgG P41 Ab. ABSENT; IgG P45 Ab. ABSENT; IgM P23 Ab. ABSENT; IgM P39 Ab. ABSENT; IgM P41 Ab. ABSENT
[2024-08-08 09:24] LABS: Lyme IgG WB Interp. NEGATIVE; Lyme IgM WB Interp. NEGATIVE
== END 2024-07-25 23:59 | disposition home or self-care (01) ==
LOC: LAB 14:55
PROVIDERS: PCP Family Medicine; Visit Provider Family Medicine
DX: B80 Enterobiasis (principal); W57.XXXA Bitten or stung by nonvenomous insect and other nonvenomous arthropods, initial encounter
CPT/HCPCS: 36415; 86617; 87177

== ENCOUNTER 2024-10-07 13:04 | Outpatient (POV) | payer BC, SELFPAY ==
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
--- OUTSIDE RECORDS SUMMARY | 2024-10-07 13:10 | XMS_ITS | Continuity of Care Document ---
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 Active Results No Results Allergies, adverse reactions, alerts Substance Reaction Date Status Type Unknown Unknown (Moderate) 04/14/2021 11:34 PM Active Medications Medication Instructions Route Dosage Frequency Start Date Stop Date Indications Status LEVOTHYROXINE 175 MCG TABLET TAKE 1 TABLET BY MOUTH ONCE DAILY Oral route 175.0 - 175.0 mcg 1.0 d Active Vital Signs No vital signs reported Procedures Procedure Date Note Body Site Specimen Indications Status TeleHealth Visit 08/25/2019 07:48 PM - 08/26/2019 02:20 AM Complete d Social History No smoking Hx information available Encounters Type CPT Code Date Location Provider Indication s Seen by primary care physician (finding) 01/05/2024 03:13 PM - 01/05/2024 03:13 PM
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
--- OUTSIDE RECORDS SUMMARY | 2024-10-07 13:10 | XMS_ITS | Clinical Summary ---
Author Organization Healthcare Address [address] [id number] Care Team Providers Care Squeegee Finisher Name Role Phone Gino Pickett MD Primary Care Provider [phone] Family History Medical History Relation Name Comments Conversions - Other Father Family h istory unknown Conversions - Other Mother Family h istory unknown Conversions - Other Other Family h istory unknown Relation Name Status Comments Father Mother Other Social History Tobacco Use Types Packs/Day Years Used Date Smoking Tobacco: Former Comments Unknown Sex and Gender Information Value Date Recorded Sex Assigned at Not on file Legal Sex Female 8:48 PM EDT Gender Identity Not on file Sexual Orientation Not on file Last Filed Vital Signs Vital Sign Reading Time Taken Comments Blood Pressure 109/65 11/07/2017 11:28 AM EDT Pulse 80 11/07/2017 11:28 AM EDT Temperature 36.7 C (98 F) 09/25/2017 9:50 AM EDT Respiratory Rate - - Oxygen Saturation - - Inhaled Oxygen Concentration - - Weight 60.3 kg (132 lb 15.7 oz) 018 11:28 AM EDT Height 170.2 cm (5' 7 ) 11/07/2017 11:2 8 AM EDT Body Mass Index 20.83 11/07/2017 11:28 AM EDT Plan of Treatment Health Maintenance Due Date Last Done Comments [facility]-Depression Screening 1968 [facility]-Infant/Child/Adol SDOH Screenings 1970 [facility]- SDOH Screenings 02/03/1986 [facility]-Adult SDOH Screenings 02/03/1986 [facility]-DTaP,Tdap,and Td Vaccine s (1 - Tdap) 02/03/1987 [facility]-Hepatitis B Vaccines (1 of 3 - 19+ 3-dose series) 02/03/1987 [facility]-Pap Smear 02/03/1989 [facility]-Cervical Cancer Screening 02/03/1998 [facility]-HPV/Cotest 02/03/1998 CT Colonography 02/03/2013 Colonoscopy 02/03/2013 FIT-DNA 02/03/2013 FIT 02/03/2013 FOBT 02/03/2013 Sigmoidoscopy 02/03/2013 [facility]-Colorectal Cancer Screening 02/03/2013 [facility]-Pneumococcal Vaccine: 50 + Years (1 of 1 - PCV) 02/03/2018 [facility]-Zoster Vaccines (1 of 2) 02/03/2018 [id number] Vaccine (1 - 20 24-25 season) 2023 [facility]-Influenza Vaccine (#1) 2024 HPV Vaccines Aged Out No longer eligi ble based on patient's age to complete this topic [facility]-HIB Vaccines Aged Out No longer e ligible based on patient's age to complete this topic [facility]-Hepatitis A Vaccines Aged Out No longer eligible based on patient's age to complete this topic [facility]-IPV Vaccines Aged Out No longer e ligible based on patient's age to complete this topic [facility]-Rotavirus Vaccines Aged Out No lo nger eligible based on patient's age to complete this topic Care Teams Squeegee Finisher Relationship Specialty Start Date End Date Gino Pickett MD [address] [place] [address] PCP - General 07/31/20
--- OUTSIDE RECORDS SUMMARY | 2024-10-07 13:10 | XMS_ITS | Data Portability ---
Author Organization [facility] [place] [facility] Address [address] [place] [id number] Care Team Providers Care Farm Reporter Name Role Phone BEST MINAYA Primary Care Provider Assessment No assessment recorded. Plan of Treatment Reminders Order Date Submit Date Provider Last Modified By Organization Details Last Modified Time Details Appointments None recorded. Lab None recorded. Referral None recorded. Procedures None recorded. Surgeries None recorded. Imaging home sleep study - HST approved under dr gipson please call and schedule order ID [id number] auth scanned in [place] [address] (Centralized Scheduling), [address] [facility], [place], [address], 17:01:45 Medication Orders None recorded. Patient TargetsNo [...] blood by Pulse oximetry Heart rate Systolic And Diastolic Provider Name and Address Organization Details Last Updated DateTime 5 90028.1 9 g 99.8 [degF] 97 % 97 % 82 /min 118/66 mm[Hg] [facility] 5 14:02:09 Social History None recorded. Functional Status None recorded. Mental Status None recorded. Family History Nothing Reported. Medical History No medical history recorded. Gynecological HistoryNo gynecological history recorded. Obstetrics History GPAL:G 0 P 0 0 0 0 Past Encounters Encounter ID Performer Location Encounter Start Date Encounter Closed Date Diagnosis/Indication Diagnosis SNOMED-CT Code Diagnosis ICD10 Code Diagnosis Note [id number] MD [facility] [place] [address] [place] [address] 06/12/2024 13:57:01 06/12/2024 14:32:33 Hypersomnia 31637390 G47.10 Classic presentati on for obstructiv e sleep apnea but certainly needs to be ruled out before more aggressive treatment strategies for insomnia pursued. Consider in-lab study if her home sleep study is negative. History of menopause so the addition of clonidine to be another thing we could look at. Of course she can always try Ambien CR or similar again Chronic insomnia 9587349 04 F51.04 Health Concerns Section Related Observation LastModified by Organization Detai ls LastModified Time None Recorded Concern Status LastModified by Organization Details LastModified Time None Recorded Advance Directives Directive None Recorded Payers Insurance Date Sequence Insurance Name Policy Number Policy Ashby Covered Member ID Ashby Member ID Guarantor Name 06/12/2024 1 [place] [id number] Te Hernandez [id number] Beverly L David 06/12/2024 2 [place] Beverly Hernandez [id number] Beverly Hernandez Notes Date Note Type [...] 10 years ago which was unremarkable. Her [place] sleepiness scale is 0/24. Her BMI is less than 30. Her neck circumference is less than 15. Issues also with menopause which she is doing hormone supplementation. Alberto Gipson MD [address], [place], [address], [facility] [place] - [place] & [place] 06/12/2024 14:38:23 OBGyn Episode No OBEpisode recorded.
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
--- OUTSIDE RECORDS SUMMARY | 2024-10-07 13:10 | XMS_ITS | Clinical Summary ---
Author Organization [facility] Address [address] [place] [address] Care Team Providers Care Traffic Operations Manager Name Role Phone Gino Pickett MD Primary Care Provider Allergies Active Allergy Reactions Criticality Noted Date Comments Sulfa Antibiotics Hives Medium 10/04/2017 Medications escitalopram (LEXAPRO) 10 MG tablet Take 10 mg by mouth Daily. Active norethindrone-ethin yl estradiol (NORTREL , ,) 1-35 MG-MCG per tablet Take 1 tablet by mouth Daily. Active traZODone (DESYREL) 50 MG tablet Take 50 mg by mouth Every Night. Active gabapentin (NEURONTIN) 300 MG capsule Take 300 mg by mouth Every Night. Active nortriptyline (PAMELOR) 25 MG capsule Take 25 mg by mouth Every Night. Active fluticasone (FLONASE) 50 MCG/ACT nasal spray 2 sprays into each nostril Daily. Active HAVRIX 1440 EL U/ML vaccine 8 Active indomethacin (INDOCIN) 25 MG capsule 8 Active FLUZONE QUADRIVALENT 0.5 ML suspension prefilled syringe injection 8 Active SYNTHROID 150 MCG tabletIndications:P ostablative hypothyroidism Take 150 mcg PO daily 6 out 7 days per week 25 tablet 11 9 Active Active Problems Problem Noted Date Diagnosed Date Postablative hypothyroidism 10/04/2017 S/P amputation of limb Migraines Depression Asthma Family History Medical History Relation Name Comments Heart attack Father Stroke Father Arthritis Mother Hypothyroidism Mother Osteoporosis Mother Relation Name Status Comments Father Mother Social History Tobacco Use Types Packs/Day Years Used Date Smoking Tobacco: Former Cigarettes Q uit: 2006 Smokeless Tobacco: Never Alcohol Use Standard Drinks/Week Comments Yes 0 (1 standard drink = 0.6 oz pur e alcohol) social Abuse Screen Answer Date Recorded Unsafe at Home or Work/School Not on file Feels Threatened by Someone? Not on file 02/2023 Does Anyone Keep You from Co ntacting Others or Doint Things Outside the Home? Not on file 12/29/2022 Physical Sign of Abuse Present Not on file 1 Housing Stability Answer Date Recorded Current Living Arrangements Not on file 12/18 Potentially Unsafe Housing Conditions Not on daniel e 12/29/2022 Family and Community Support Answer Alejandro e Recorded Help with Day-to-Day Activities Not on file 12/29/2022 Lonely or Isolated Not on file 12/29/2022 Employment Answer Date Recorded Do you want help finding or keeping work or a abhishek b? Not on file 12/29/2022 Disabilities Answer Date Recorded Concentrating, Remembering, or Making Decisions Difficulty Not on file 12/29/2022 Doing Errands Independently Difficulty Not on fi le 12/29/2022 Education Answer Date Recorded Help with school or training? Not on file Preferred Language Not on file 12/29/2022 Comments No Sex and Gender Information Value Date Recorded Sex Assigned at Not on file Legal Sex Female 2:48 PM EST Gender Identity Not on file Sexual Orientation Not on file Last Filed Vital Signs Vital Sign Reading Time Taken Comments Blood Pressure 102/68 03/07/2018 2:26 PM EST Pulse 82 03/07/2018 2:26 PM EST Temperature - - Respiratory Rate - - Oxygen Saturation 99% 03/07/2018 2:26 PM EST Inhaled Oxygen Concentration - - Weight 60.8 kg (134 lb) 03/07/2018 2:26 PM EST Height 170.2 cm (5' 7 ) 03/07/2018 2:26 PM EST Body Mass Index 20.99 03/07/2018 2:26 PM EST Plan of Treatment Health Maintenance Due Date Last Done Comments Annual Gynecologic Pelvic an d Breast Exam 1968 MAMMOGRAM 2008 COLOGUARD 02/03/2013 COLON CANCER SCREENING 5 YEA R SIGMOIDOSCOPY 02/03/2013 COLONOSCOPY 02/03/2013 COLORECTAL CANCER SCREENING 02/03/2013 CT COLONOGRAPHY 02/03/2013 FECAL OCCULT BLOOD TEST 02/03/2013 FIT Testing (1 year) 02/03/2013 ANNUAL PHYSICAL 05/16/2017 HEPATITIS C SCREENING 05/16/2017 ZOSTER VACCINE (1 of 2) 02/03/2018 Pneumococcal Vaccine 50+ (2 of 2 - PCV) 04/16/2021 04/16/2020 COVID-19 Vaccine (2 - season) 2023 INFLUENZA VACCINE 12/18/2024 01/02/2020, , 01/17/2018 TDAP/TD VACCINES (2 - Td or Tdap) 11/15/2027 018 Insurance [facility] [employer] PPO Member Subscriber Plan / Payer (Ef fective 2008-Present) Name:Beverly Hernandez Relation to Subscriber:Spouse Name:SANG HERNANDEZ Date of :1964 (Home) Address: [address] [place] [address] Payer ID:[id number] (NA) Type:Not on file Address: [address] [place] [phone] Care Teams Traffic Operations Manager Relationship Specialty Start Date End Date Gino Pickett MD [address] [place] [facility] [address] [place] [address] PCP - General Family Medicine 10/04/17
[2024-10-07 14:09] VITALS: BP 100/54; PULSE 81; RESP 18; O2SAT 99; BMI 20.8
--- NOTE | 2024-10-07 14:56 | A.OFFVIS_ITS ---
HPI Data of Consult Patient: new to practice Consult date: 10/07/24 Requesting Physician: Laurel Negro APRN Primary Care Provider: Gino Pickett MD Reason for consult: Chronic below the knee pain, phantom pain History of present illness: Ms. Hernandez is a 54 year old female who presents today as a new patient. She is a referral from Dr. Pickett's office. Today she rates her pain a 8 out of 10. Patient states that she ended up having below the knee amputated on the left side back in 2008 and has had nerve pain ever since. Patient states that she had tried conservative measures including oral medication, heat and ice, topicals such as CBD cream and physical therapy with minimal changes. Patient does see a chiropractor on a regular basis however it makes no difference with the nerve pain. Patient was going to a pain management group in [place] at [facility] spine where they had done some blocks and then an ablation that did provide 100% relief and just really started to increase in pain here recently. Patient is unsure specifically what type of injection this was exactly and states that they did give her sedation for it. Patient states it is very difficult to get all the way to [place] so she was wanting to be closer if possible. Patient is currently managed with gabapentin capsules 300 mg 3 times a day. She states she cannot do the tablets due to magnesium stearate that she has a reaction to it. Patient denies any other surgeries. Patient does describe the pain as a burning stabbing sensation. She does state the pain interferes with her ability perform activities of daily living such as cooking and cleaning. Her Gaetano has been reviewed. Pain at rest (0-10 scale): 8 Has patient had previous pain injection?: No Conservative treatment options previously tried: Home exercise plan (Longer than 12 weeks) cc:: CC: Laurel Negro APRN [facility] Disclaimer: The information contained in this section may have been updated after the patient was seen, as this information can be updated by other users. Medical History (Updated 10/07/24 @ 15:00 by Laurel Negro APRN) Oral lesion Surgical History History of below knee amputation History of left below knee amputation Family History (Updated 10/07/24 @ 14:19 by Carie Herrmann RN) Other Hypothyroidism Social History (Updated 10/07/24 @ 14:21 by Carie Herrmann RN) Smoking Status: Never smoker alcohol intake: current alcohol intake frequency: a few times a week substance use type: denies use current occupational status: employed Travel in the last 8 weeks?: None household members: spouse housing: house current occupational exposures/hazards: No caffeine: Yes Have you lived/traveled outside [place] in past 30 days?: No Contact w/someone who lives/traveled outside US past 30 days?: No Exposure to someone with infectious disease in past 14 days?: No Do you have a fever (greater than 100.4 F or 38 C)?: No Have you tested positive for COVID-19?: No Exposed to someone with COVID-19 in past 14 days?: No Do you have a sore throat?: No Do you have a cough?: No Do you have any weakness?: No Do you have any diarrhea?: No Are you experiencing any unusual bleeding?: No Do you have any muscle aches/pain?: No Do you have any abdominal pain?: No Are you experiencing loss of taste or smell?: No Review of Systems Review of Systems Review of systems:: pertinent systems reviewed and negative unless documented below Review of systems (narrative): Review of Systems: General: No recent weight changes, no fever, no sleep disturbances Respiratory: No cough, no shortness of air, no recurring pulmonary infections Cardiovascular/peripheral vascular: No chest pain, no palpitations, no edema, no shortness of breath Gastrointestinal: No new onset incontinence, normal bowel movements reported Genitourinary: No new onset incontinence Musculoskeletal: Below the knee amputation pain Psychiatric: [Normal mood/affect] Neurological: [Denies weakness in extremities], [denies balance issues] Meds Home Medications and Allergies Home Medications ?Medication ?Instructions ?Recorded ?Confirmed ?Type trazodone 50 mg tablet 100 mg PO HS sleep 06/12/17 10/07/24 History gabapentin 300 mg capsule 300 mg PO HS neuropathy 05/1910/07/24 History estradiol 0.1 mg/24 hr semiweekly 1 patch topical ONCE 05/15/24 10/07/24 History transdermal patch ([place]) levothyroxine 150 mcg capsule 150 mcg PO DAILY THYROID 05/15/24 10/07/24 History (Tirosint) nortriptyline 10 mg/5 mL oral 25 mg PO DAILY 05/15/24 10/07/24 History solution New Prescriptions to Start Prescriptions: Allergies Allergy/AdvReac Type Severity Reaction Status Date / Time clindamycin Allergy Mild rash Verified 05/15/24 14:33 Sulfa (Sulfonamide Allergy Unknown Unknown Verified 05/15/24 14:33 Antibiotics) allergy reaction Objective Vital signs: Pulse Resp BP Pulse Ox O2 Del Method 81 18 100/54 L 99 Room Air 10/07/24 14:09 10/07/24 14:09 10/07/24 14:09 10/07/24 14:10/07/24 14:09 Narrative: Physical Exam: General: Alert and oriented x3, no acute distress, pleasant and cooperative Lungs: Respirations even and unlabored, symmetrical chest expansion Eyes: PERRL Musculoskeletal: Flexion and extension of left knee somewhat guarded secondary to pain, [antalgic gait noted], decreased sensation to light touch Neurological: Speech clear, no gross sensory deficit Assessment and Plan *Assessment and plan (1) Phantom pain after amputation of lower extremity: Status: Acute Category: Medical Code(s): G54.6 - Phantom limb syndrome with pain (2) Left leg pain: Status: Acute Category: Medical Code(s): M79.605 - Pain in left leg Plan I did discuss with the patient regarding her procedure she had with [facility]. It does sound like she had a genicular RFA. I did review over the risk and benefits as well as tell her that we generally do not do conscious sedation as these procedures are so fast. Patient did acknowledge understanding. We did get her to sign a release today and requested records to confirm the injection she did have. I did personnel counselor the patient that insurance had changed over the last couple of years and previously they were denying this injection. I did discuss with her that we can definitely proceed forward with t his injection once we get confirmation from records from [facility]. I will order the patient a compounded cream. Patient did contact our office back to let us know that she did not want to proceed forward with this injection. Patient's previous records were sent for however we have never gotten any fax or emails regarding this. Patient has been instructed to contact the clinic with any concerns before the next appointment. Dr. Talavera has reviewed this note and agrees with this plan of care. This note was dictated using voice recognition software and make contain errors or omissions. All injections are used with Lidocaine, Bupivacaine and dexamethasone. Occasionally urine drug screen is needed to verify patient's compliance with our office pain contract. This is ordered based off specific treatments related to chronic pain with the potential to abuse certain medications.
== END 2024-10-07 23:59 | disposition home or self-care (01) ==
LOC: SC.PAIN 13:05
PROVIDERS: PCP Family Medicine; Visit Provider Nurse Practitioner Family
DX: M79.605 Pain in left leg (principal); G54.6 Phantom limb syndrome with pain; Z79.899 Other long term (current) drug therapy; Z89.511 Acquired absence of right leg below knee
CPT/HCPCS: 99202; G0463

== ENCOUNTER 2025-03-14 16:26 | Outpatient (CLI) | payer BC, SELFPAY ==
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
--- OUTSIDE RECORDS SUMMARY | 2024-11-12 09:45 | XMS_ITS ---
Author Organization [facility] Address [address] [facility] [address] [place] [id number] Care Team Providers Care Smooth Plater Name Role Phone Freddy Pickett Primary Care Provider REASON FOR VISIT refills, Needs labs, mammogram, & shingles vaccine Encounters Encounter Location Date Provider Diagnosis [facility] [address] [facility] [address] [place] [id number] 11/12/2024 Freddy Pickett Plan Of Treatment Next Appt Details Provider Name:Kishore Rica Wilkins ry, 03/14/2025 04:10:00 PM, [address], [address], [place], [phone], Progress Notes * EDISONAlonsoOB:1970 (55 yo F)Acc No.[id number]:11/12/2024 Progress Notes Patient: Beverly CAPONE Provider: Freddy Pickett M.D. :1970 A ge:54 Y S ex:Female Date:11/12/2024 Address: [id number] [id number] Subjective: * Chief Complaints: * 1 . Refills. 2. Needs labs, mammogram, & shingles vaccine. * Medical History: Objective: * Vitals: Assessment: Plan: * Treatment: * Images: Billing Information: * Visit Code: * Procedure Codes: * Electronic signature of Freddy Pickett MD on 03/14/2025 at 04:31 PM EST Sign off status: Pending * Provider: Freddy Pickett M.D. Date: 0 11/12/2024 Generated for Doug spaulding/Maddy/Carol Ann on: 1 05/15/2024 04:31 PM EST
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
--- NOTE | 2025-03-14 | XR_ITS ---
PROCEDURE INFORMATION: Exam: XR Chest Exam date and time: 03/14/2025 4:25 PM Age: 55 years old Clinical indication: Cough; Additional info: Acute cough, flu since Monday TECHNIQUE: Imaging protocol: Radiologic exam of the chest. Views: 2 views. COMPARISON: CR XR CHEST 2V 01/18/2023 11:42 AM FINDINGS: Lungs: Unremarkable. No consolidation. Pleural spaces: Unremarkable. No pleural effusion. No pneumothorax. Heart/Mediastinum: Unremarkable. No cardiomegaly. Bones/joints: Unremarkable. IMPRESSION: No acute findings.
--- OUTSIDE RECORDS SUMMARY | 2025-03-14 16:31 | XMS_ITS | Clinical Summary ---
Author Organization [facility] Address [address] [place] [address] Care Team Providers Care Sales Manager [place] Name Role Phone Gino Pickett MD Primary Care Provider Allergies Active Allergy Reactions Criticality Noted Date Comments Sulfa Antibiotics Hives Medium 10/04/2017 Medications escitalopram (LEXAPRO) 10 MG tablet Take 10 mg by mouth Daily. Active norethindrone-ethin yl estradiol (NORTREL , 21,) 1-35 MG-MCG per tablet Take 1 tablet [...] (2 of 2 - PCV) 04/16/2021 04/16/2020 INFLUENZA VACCINE 10/18/2024 01/02/2020, , 01/17/2018 TDAP/TD VACCINES (2 - Td or Tdap) 11/15/2027 018 Insurance [facility] PPO Care Teams Sales Manager [place] Relationship Specialty Start Date End Date Gino Pickett MD [address] [place] [id number] PCP - General Family Medicine 10/04/17
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
--- OUTSIDE RECORDS SUMMARY | 2025-03-14 16:33 | XMS_ITS | Clinical Summary ---
Author Organization Healthcare Address [address] [place] [address] Care Team Providers Care Business Law Instructor Name Role Phone Alberto Pickett MD Primary Care Provider [phone] Family History Medical History Relation Name Comments [...] 02/03/2018 [facility]-Zoster Vaccines (1 of 2) 02/03/2018 [facility]-RNEYF-10 Vaccine (1 - - season) 2024 [facility]-Influenza Vaccine (#1) 2024 HPV Vaccines (No Doses Required) Completed [facility]-HIB Vaccines Aged Out No longer e [...] age to complete this topic Care Teams Business Law Instructor Relationship Specialty Start Date End Date Alberto Pickett MD [facility] [id number] PCP - General 07/31/20
== END 2025-03-14 23:59 ==
LOC: RAD 16:29
PROVIDERS: PCP Family Medicine; Visit Provider Family Medicine
DX: R05.1 Acute cough (principal)
CPT/HCPCS: 71046